=== PATIENT | male | born 1955 | race Caucasian/White ===

== ENCOUNTER 2024-05-09 15:23 | Outpatient (CLI) | payer MEDICARE, SELFPAY ==
--- NOTE | 2024-05-09 08:30 | DI.RAD_ITS ---
Exam(s) XR KNEE RT 3V AP,LAT,SHADI EXAM: XR KNEE RT 3V AP,LAT,SHADI CLINICAL HISTORY: eval R TKA pain. TECHNIQUE: 2D digital imaging was performed. COMPARISON: CR XR KNEE 1 OR 2V RT from 03/31/2016 CR ORTHO KNEE RIGHT 4+VIEWS from 04/22/2016 CR ORTHO KNEE RIGHT 3 VIEWS from 06/24/2016 DX Knee RT from 03/31/2022 FINDINGS: Four views Again noted is a revised right knee prosthesis with longer stems in both the femoral and tibial compo nents when compared to the original prosthesis of 03/31/2016 There is no evidence of fracture but there is a linear lucency parallel to the surface subjacent to t he medial tibial plateau component. May be associated with loosening. Similar findings not seen rel ated to the femoral component. No evidence of osteomyelitis. IMPRESSION: Possible loosening of the tibial component. DATA REPOSITORY: RADIATION DOSE DELIVERED:
== END 2024-05-09 15:24 | disposition home or self-care (01) ==
LOC: DIORS 15:24
PROVIDERS: PCP Family Medicine; Referring Provider Family Medicine; Visit Provider Student in an Organized Health Care Education/Training Program
DX: T84.84XA Pain due to internal orthopedic prosthetic devices, implants and grafts, initial encounter (principal); Z96.651 Presence of right artificial knee joint; M24.661 Ankylosis, right knee
CPT/HCPCS: 73562; 99204

== ENCOUNTER 2024-05-17 01:55 | Outpatient (CLI) | payer MEDICARE, SELFPAY ==
--- NOTE | 2024-05-17 06:45 | DI.NM_ITS ---
Exam(s) NM BONE SCAN 3 PHASE EXAM: NM BONE SCAN 3 PHASE CLINICAL HISTORY: PAIN, ? LOOSENING TOTAL KNEE REPLACEMENT,Z96.651,T84.84XA,. TECHNIQUE: Injected Dose: 25 mCi Tc-99m MDP COMPARISON: DX Knee RT from 03/31/2022 CR XR KNEE RT 3V AP,LAT,SHADI from 05/09/[address] LOWER EXTREMITY RT WO from 05/17/2024 FINDINGS: Perfusion: No asymmetric uptake is seen in the right proximal tibia. Blood Pool: No asymmetric uptake is seen in the right proximal tibia. Delayed: There is increased uptake seen on the delayed images at the bone prosthesis interface in the proximal tibia. This can be seen with loosening. IMPRESSION: 1. Increased uptake seen at the bone prosthetic interface of the proximal tibia which can be seen wit h loosening. DATA REPOSITORY:
--- NOTE | 2024-05-17 08:28 | DI.CT_ITS ---
Exam(s) CT LOWER EXTREMITY RT WO EXAM: CT LOWER EXTREMITY RT WO CLINICAL HISTORY: PAIN, ? LOOSENING RT TOTAL KNEE REPLACEMENT,Z96.651,T84.84XA. TECHNIQUE: Imaging Protocol: Axial computed tomography images with coronal and sagittal reformatted images were created and reviewed. COMPARISON: CR ORTHO KNEE RIGHT 4+VIEWS from 04/22/2016 CR ORTHO KNEE RIGHT 3 VIEWS from 06/24/2016 DX Knee RT from 03/31/2022 CR XR KNEE RT 3V AP,LAT,SHADI from 05/09/2024 FINDINGS: There is artifact related to the patient's right total knee arthroplasty. This does limit the examin ation. Bones: The osseous structures and articular surfaces are intact. Bony alignment is satisfactory. T here is lucency seen at the bone prosthetic interface in the medial proximal tibia. This lucency has increased when compared to the prior examinations. The bone prosthetic interface is well maintained i n the distal femur. The patella is unremarkable. Soft Tissues: There is no joint effusion. Atherosclerotic calcification is present. IMPRESSION: With compared to prior x-ray examinations there has been a worsening of the lucency at the bone prost hetic interface in the medial proximal tibia raising the question of loosening. RADIATION DOSE DELIVERED: 207.64mGy.cm Total DLP 207.64mGy.cm Total DLP DATA REPOSITORY: All CT scans at this facility are submitted to the National Radiology Data Registry (NRDR) Dose Index Registry (DIR) with the [employer] ([employer]). RADIATION OPTIMIZATION: All CT scans at this facility use at least one of these dose optimization te chniques: automated exposure control; mA and/or kV adjustment per patient size (includes targeted exa ms where dose is matched to clinical indication); or iterative reconstruction.
[2024-05-17 08:30] LABS: ESR 5 mm/hr (0-20)
== END 2024-05-17 02:15 ==
LOC: DI 01:55
PROVIDERS: PCP Family Medicine; Visit Provider Student in an Organized Health Care Education/Training Program
DX: T84.84XA Pain due to internal orthopedic prosthetic devices, implants and grafts, initial encounter (principal); Z96.651 Presence of right artificial knee joint
CPT/HCPCS: 85652; 73700; 78315; 86140

== ENCOUNTER → 2024-06-09 08:47 | Outpatient (BNVA) | payer MEDICARE, SELFPAY | PROVIDERS: PCP Family Medicine; Referring Provider Family Medicine; Visit Provider Student in an Organized Health Care Education/Training Program | DX: M25.661 Stiffness of right knee, not elsewhere classified (principal); T84.84XA Pain due to internal orthopedic prosthetic devices, implants and grafts, initial encounter; Z96.651 Presence of right artificial knee joint | CPT/HCPCS: 20610; 99214 ==

== ENCOUNTER 2024-06-09 11:06 | Outpatient (REF) | payer MEDICARE, SELFPAY ==
[2024-06-09 10:47] LABS: Clarity Cloudy
[2024-06-09 10:48] LABS: Nucleated Cells 966 uL (0)
[2024-06-09 10:57] LABS: Mononuclear Cells 71 %; Polynuclear Cells 29 %
--- OUTSIDE RECORDS SUMMARY | 2024-06-09 11:08 | XMS_ITS | Encounter Summary ---
Author Organization [facility] Address [address] [place] [address] Care Team Providers Care Dryerman/Woman Name Role Phone Gilmer Lin MD Primary Care Provider [phone] Reason for Referral * Radiology Services (Routine) - Closed Specialty Diagnoses / Procedures Referred By Anil gardner Referred To Contact Diagnoses H/O right knee surgery Procedures XR KNEE RIGHT 1-2 VIEWS Fred Sethi PA-C Phone: tel: fax: Referral ID Status Reason Start Date Expiration Date Visits Re quested Visits Authorized [id number] Closed 06/22/2020 1 1 Reason for Visit * Radiology Services (Routine) - Closed Specialty Diagnoses / Procedures Referred By Anil gardner Referred To Contact Diagnoses H/O right knee surgery Procedures XR KNEE RIGHT 1-2 VIEWS Fred Sethi PA-C Phone: tel: fax: Referral ID Status Reason Start Date Expiration Date Visits Re quested Visits Authorized [id number] Closed 06/22/2020 1 1 Encounter Details Date Type Department Care Team (Latest Contact Info) Description 06/27/2020 11:04 EST - 06/27/2020 23:59 EST Hospital Encounter [address] [place] [address] H/O right knee surgery Discharge Disposition: Home or Self Care Social History Tobacco Use Types Packs/Day Years Used Date Smoking Tobacco: Never Alcohol Use Standard Drinks/Week Comments No 0 (1 standard drink = 0.6 oz pur e alcohol) Interpersonal Safety Answer Date Record ed Physically Hurt Never 05/20/2020 Verbally Threaten Not on file 05/20/2020 Sex and Gender Information Value Date Recorded Sex Assigned at Not on file Legal Sex Male 18:28 EST Gender Identity Male 06/27/2020 12:34 EST Sexual Orientation Not on file COVID-19 Exposure Response Date Recorded In the last month, have you been in contact with someone who was confirmed or suspected to have Coronavirus / COVID-19? No / Unsure 06/27/2020 12:35 EST documented as of this encounter Functional Status * Are you deaf or do you have serious difficulty hearing? Answer Date of Assessment Author No 04/26/2016 0:00 Sa lea Tyson RN * Are you blind or do you have serious difficulty seeing, even when wearing glasses? Answer Date of Assessment Author Yes 04/26/2016 0:00 Sa lea Tyson RN * Do you have serious difficulty walking or climbing stairs? (5 years old or older) Answer Date of Assessment Author Yes 04/26/2016 0:00 Sa lea Tyson RN * Do you have difficulty dressing or bathing? (5 years old or older) Answer Date of Assessment Author Yes 04/26/2016 0:00 Sa lea Tyson RN * Because of a physical, mental, or emotional condition, do you have difficulty doing errands alone such as visiting a doctor's office or shopping? (15 years old or older) Answer Date of Assessment Author No 04/26/2016 0:00 Sa lea Tyson RN documented as of this encounter Mental Status * Because of a physical, mental, or emotional condition, do you have serious difficulty concentrating, remembering, or making decisions? (5 years old or older) Answer Entry Date Author No 04/26/2016 0:00 Sa lea Tyson RN documented in this encounter Medications at Time of Discharge acetaminophen (TYLENOL) 325 mg tabletIndications :headache disorder Take 325 mg by mouth every 4 hours as needed for Pain. lisinopriL (PRINIVIL) 10 mg tablet Take 10 mg by mouth daily. High blood pressure documented as of this encounter Discharge Disposition Disposition Code Departure Means Destination Home or Self Care documented in this encounter Plan of Treatment Not on file documented as of this encounter Procedures Procedure Name Priority Date/Time Associated Diagnosis Comments XR KNEE RIGHT 1-2 VIEWS Routine 06/27/2020 11:27 EST H/O right knee surgery documented in this encounter Results * XR KNEE RIGHT 1-2 VIEWS (06/27/2020 11:27 EST) Anatomical Region Laterality Modality Lower Extremities Right Computed Radio graphy 06/27/2020 14:3 1 EST Impressions 06/27/2020 14:31 EST FINDINGS / IMPRESSION: * ??Right knee 3 views: Constrained right knee arthroplasty without evidence of periprosthetic fracture. Mild lucency surrounding the medial tibial bone prosthetic interface. Mild osteopenia. * ??Left knee one view: Mild medial and lateral compartment degenerative changes. Narrative 06/27/2020 14:31 EST EXAM/TECHNIQUE: XR KNEE RIGHT 1-2 VIEWS, XR KNEE LEFT 1-2 VIEWS ??06/27/2020 11:30 AM HISTORY: ??loosening COMPARISON: None. Procedure Note Bernabe Donis MD - 06/27/2020 EXAM/TECHNIQUE: XR KNEE RIGHT 1-2 VIEWS, XR KNEE LEFT 1-2 VIEWS 111:30 AM HISTORY: loosening COMPARISON: None. IMPRESSION FINDINGS / IMPRESSION: * Right knee 3 views: Constrained right knee arthroplasty withoutevidence of periprosthetic fracture. Mild lucency surrounding the medialtibial bone prosthetic interface. Mild osteopenia. * Left knee one view: Mild medial and lateral compartment degenerativechanges. Fred Sethi PA-C IMG DIAGNOSTIC IMAGING ORD ERABLES Final Result documented in this encounter Visit Diagnoses Diagnosis H/O right knee surgery Personal history of surgery to other organs documented in this encounter Care Teams Dryerman/Woman Relationship Specialty Start Date End Date Gilmer Lin MD [address] [place] [address] ,[address] [place] [address] PCP - General 04/25/16 documented as of this encounter
--- OUTSIDE RECORDS SUMMARY | 2024-06-09 11:08 | XMS_ITS | Encounter Summary ---
Author Organization [facility] Address [address] [place] [address] Care Team Providers Care Steel Plate Printer Name Role Phone Gilmer Lin MD Primary Care Provider [phone] Reason for Referral * Radiology Services (Routine) - Closed Specialty Diagnoses / Procedures Referred By Anil gardner Referred To Contact Diagnoses H/O right knee surgery Procedures XR KNEE LEFT 1-2 VIEWS Fred Sethi PA-C Phone: tel: fax: Referral ID Status Reason Start Date Expiration Date Visits Re quested Visits Authorized [id number] Closed 06/22/2020 1 1 Reason for Visit * Radiology Services (Routine) - Closed Specialty Diagnoses / Procedures Referred By Anil gardner Referred To Contact Diagnoses H/O right knee surgery Procedures XR KNEE LEFT 1-2 VIEWS Fred Sethi PA-C Phone: tel: fax: Referral ID Status Reason Start Date Expiration Date Visits Re quested Visits Authorized [id number] Closed 06/22/2020 1 1 Encounter Details Date Type Department Care Team (Latest Contact Info) Description 06/27/2020 11:04 EST - 06/27/2020 23:59 EST Hospital Encounter [address] [place] [address] H/O right knee surgery Discharge [...] Priority Date/Time Associated Diagnosis Comments XR KNEE LEFT 1-2 VIEWS Routine 06/27/2020 11:27 EST H/O right knee surgery documented in this encounter Results * XR KNEE LEFT 1-2 VIEWS (06/27/2020 11:27 EST) Anatomical Region Laterality Modality Lower Extremities Left Computed Radio graphy 06/27/2020 14:3 1 EST [...] organs documented in this encounter Care Teams Steel Plate Printer Relationship Specialty Start Date End Date Gilmer Lin MD [address] [place] [address] ,[address] [place] [address] PCP - General 04/25/16 documented as of this encounter
--- OUTSIDE RECORDS SUMMARY | 2024-06-09 11:08 | XMS_ITS | Referral Summary ---
Author Organization [facility] Address [address] [place] [address] Care Team Providers Care Hand Shoe Cutter Name Role Phone Gilmer Lin MD Primary Care Provider [phone] Allergies No known active allergies Medications lisinopriL (PRINIVIL) 10 mg tablet Take 10 mg by mouth daily. High blood pressure Active acetaminophen (TYLENOL) 325 mg tabletIndicatio ns:headache disorder Take 325 mg by mouth every 4 hours as needed for Pain. 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 Chronic kidney disease, stage III (moderate) ( C-CMS) 09/03/2011 Essential hypertension 09/03/2011 Overview (03/01/2015): ICD10 Update Auto Replacement Social History Tobacco Use Types Packs/Day Years [...] 12:34 EST Sexual Orientation Not on file Last Filed Vital Signs Vital Sign Reading Time Taken Comments Blood Pressure 123/82 04/28/2016 0514 EST Pulse 83 04/26/2016 0531 EST Temperature 36.8 ??C (98.2 ??F) 04/28/2016 0514 EST Respiratory Rate 16 04/28/2016 0514 EST Oxygen Saturation 98% 04/28/2016 0514 EST Inhaled Oxygen Concentration - - Weight 75.8 kg (167 lb) 04/25/2016 1403 EST Height 167.6 cm (5' 6) 04/25/2016 1403 EST Body Mass Index 26.95 04/25/2016 1403 EST Functional Status * Are you deaf or [...] No 04/26/2016 0:00 Sa lea Tyson RN Mental Status * Because of a physical, mental, or emotional condition, do you have serious difficulty concentrating, remembering, or making decisions? (5 years old or older) Answer Entry Date Author No 04/26/2016 0:00 Sa lea Tyson RN Plan of Treatment Not on file Insurance [facility] [place] [address] Advance Directives For more information, please contact: [phone] * Full Code (Latest Code Status on File) Date Activated Date Inactivated Comments 04/25/2016 23:08 04/28/2016 14:35 Question Answer Comments Reason for decision includes: Full code consistent with overall plan of care Who participated in the discussion? Not Discusse d Care Teams Hand Shoe Cutter Relationship Specialty Start Date End Date Gilmer Lin MD [address] [place] [address],[address] [place] [phone] PCP - General 04/25/16
--- OUTSIDE RECORDS SUMMARY | 2024-06-09 11:08 | XMS_ITS | Encounter Summary ---
Author Organization [facility] Address [address] [place] [address] Care Team Providers Care Design Engineer Marine Equipment Name Role Phone Gilmer Lin MD Primary Care Provider [phone] Encounter Details Date Type Department Care Team (Latest Contact Info) Description 06/27/2020 Travel Social History Tobacco Use Types Packs/Day Years [...] lea Tyson RN documented in this encounter Plan of Treatment Not on file documented as of this encounter Visit Diagnoses Not on filedocumented in this encounter Care Teams Design Engineer Marine Equipment Relationship Specialty Start Date End Date Gilmer Lin MD [address] [place] [address],[address] [place] [address] PCP - General 04/25/16 documented as of this encounter
--- OUTSIDE RECORDS SUMMARY | 2024-06-09 11:08 | XMS_ITS | Encounter Summary ---
Author Organization [facility] Address [address] [place] [address] Care Team Providers Care Medical Insurance Biller Name Role Phone Gilmer Lin MD Primary Care Provider [phone] Reason for Visit * Reason Comments Knee Pain Right knee pain Pain * Consult, Test and Treat (Routine) - Closed Specialty Diagnoses / Procedures Referred By Contsugey gardner Referred To Contact Orthopedic Surgery Diagnoses Presence of unspecified artificial knee joint Gilmer Lin MD [address] [place] [address],[address] [place] [address] Phone: tel: fax: [facility] [place] [address] Phone: tel: fax: Referral ID Status Reason Start Date Expiration Date Visits Re quested Visits Authorized [id number] Closed 1 1 Encounter Details Date Type Department Care Team (Late st Contact Info) Description 06/27/2020 11:00 EST Office Visit [facility] [place] [address] Fred Sethi PA-C [address] [place] [address] History of revision of total replacement of right knee joint (Primary Dx) Social History Tobacco Use Types Packs/Day Years [...] lea Tyson RN documented in this encounter Progress Notes * Fred Sethi PA-C - 06/27/2020 1100 EST NEW RIGHT KNEE PAIN, HISTORY REVISION R TKA SUBJECTIVE: Fredi Vargas presents today for right knee pain after previous revision R TKA referred by Dr. Lin. This 65-year-old gentleman with history of hypertension and chronic kidney disease underwent right total knee arthroplasty on 03/31/2016 at [facility] in [facility] with Dr. Gann. He reports pain and swelling after the primary surgery. He then underwent revision TKA with Dr. Thorne at [facility]. At his follow-up with Dr. Thorne in October 2018 he was reported to still have pain stiffness and swelling and it appears no further treatment was recommended. It also appears he was examined by Dr. Montero at [facility] in 2019 where inflammatory markers were ordered in what appears to be an attempt to rule out infection. Unfortunately all prior notes are not available at todays visit. He reports 5/10 severity constant right knee pain today. He feels like he has had significant pain since both his surgeries and neither of them have ever significantly reduced his pain. He takes Tylenol regularly for his headaches. There is a tightness reported around the anterior knee. Social history was reviewed. The patient does not drink alcohol. He does not use tobacco products. Current Outpatient Medications Medication ??? acetaminophen (TYLENOL) 325 mg tablet ??? lisinopriL (PRINIVIL) 10 mg tablet No current facility-administered medications for this visit. No Known Allergies REVIEW OF SYSTEMS: Documented on the patient intake form. These were reviewed by me. Pertinent positives mentioned above. PHYSICAL EXAM: GENERAL: Adult male Patient is of appropriate dress and affect in no acute distress. AOx 3. Pleasant and cooperative during examination. Pt is interactive and asks appropriate questions during interview demonstrating understanding. Skin: Does have multiple areas of minor skin irritation about the medial thigh and abdomen. Eyes: Sclerae clear. Cardiovascular: Gross examination of the peripheral vascular system by observation and palpation reveals no significant ulcers, peripheral edema or varicosities. Capillary refill normal. Palpable 2+ Dorsalis Pedis and posterior tibial pulses Respiratory: Regular, unlabored, without audible wheezing. Neuro: There is no tremor appreciated. Speech is fluent and understandable. No obvious proprioceptive/balance defects appreciated. Heme/Lymph: No gross LAD appreciated during examination. No purpura/petechiae are noted. Musculoskeletal: Pt is full weightbearing. Arises from a seated position without pain. Ambulates with a moderate limp. Knee: Evaluation of RIGHT knee demonstrates no gross deformity, lacerations, or ecchymosis. The knee is not warm or erythematous. The skin is in good condition with no observed lacerations or breaks. Thereis a well-healed surgical incision There is no gross genu varum or valgum deformity noted No significant joint line tenderness. Grossly NVID. RIGHT ROM: While supine at 90 of hip flexion Flexion: 5-80 Has no varus or valgus laxity at 0 or 30 degrees flexion Strength Testin/5 strength appreciated bilat tibialis anterior/gastroc soleus testing There is 1+ effusion Has no pain with patellar grind. IMAGING STUDY REVIEW: Imaging of the knees was obtained in clinic today and independently reviewed by me. There is a longstem cemented revision type total arthroplasty in good position with no sign of periprosthetic fracture or loosening. Of note there appears to be development of at least a moderate patella baja on lateral views when compared to post op films in 2016. This finding appears to be due to soft tissue changes as apposed to realignment of the joint line after the revision surgery. ASSESSMENT AND MEDICAL DECISION MAKING: DIAGNOSIS: 1) History right total knee arthoplasty revision 2) Chronic right knee pain SUMMARY: It was my pleasure to see Fredi Vargas in orthopedic clinic today regarding his right knee pain. Fredi has a complex orthopedic history regarding his right knee. Unfortunately he continues to have pain and swelling in his right knee and presents today for second opinion on steps moving forward. This lack of ROM, swelling and pain affects him on a daily basis and is quite limiting per his report. It appears his issues mainly stem from a significant amount of post operative arthrofibrosis which was only partially alleviated with his revision surgery. We discussed that first I would like to order repeat inflammatory markers. Not only do I not have the results from his last lab work-up in 2019 but considering his continued pain and effusion I thinkrepeating labs is a very reasonable next step. We also discussed that if there is any significant elevations arthrocentesis may be advised for further investigation We did discuss the option of referral to one of our arthroplasty surgeons however at this time Fredi is not ready to make a decision on any further discussion of surgery. I have not recommended he aggressively pursue anymore elective surgery on his right knee. I think there is a relatively unknown chance that further revision surgery would give him significant relief of symptoms. Note: Labs are un concerning forand this was discussed with Mr. Herrera over the phone 06/28/2020 LABS 06/27/2020 SED RATE 1 CRP <7 WBC 5.68 PLAN: Follow up as needed, if symptoms worsen Dr. Sanchez or Dr. Romero only COMMENT: I have discussed diagnosis, medication(s)/treatment(s), alternatives and potential side effects with the patient who indicated their understanding. Numeric/pictorial pain scale used for pain evaluation during todays exam. No learning or language barriers noted during clinical encounter. Patient was counseled on evaluation, voiced agreement with plan, and has no further questions or concerns relating to today's visit. Dr. Sanchez was the orthopedic attending physician available in clinic today. Consultation was not required. Cc: Gilmer Lin Cc: Delia documented in this encounter Plan of Treatment Not on file documented as of this encounter Results * C REACTIVE PROTEIN (06/27/2020 12:45 EST) [facility] C-Reactive Protein <7.0 <10.0 mg/L 06/27/2020 13:46 EST [facility] Blood VENOUS BLOOD / Unknown Venipuncture / Unknown 06/27/2020 12:45 EST 06/27/2020 13:13 EST us Fred Sethi PA-C CHEMISTRY & BLOOD GAS ORDE RABLES Final Result [facility] [address] [place] [address] * SED. RATE:WESTERGREN (06/27/2020 12:45 EST) Pathologist [facility] Sed Rate 1 0 - 20 mm/hr 06/27/2020 13:51 EST [facility] Blood VENOUS BLOOD / Unknown Venipuncture / Unknown 06/27/2020 12:45 EST 06/27/2020 13:08 EST us Fred Sethi PA-C HEMATOLOGY & PF4 ORDERABLE S Final Result [facility] [address] [place] [address] * (ABNORMAL) COMPLETE BLOOD COUNT AND DIFFERENTIAL (06/27/2020 12:45 [facility]) WBC 5.68 4.00 - 10.40 K/cmm 06/28/2020 17:03 [facility] RBC 6.17(H) 4.36 - 5.78 M/cmm 06/28/2020 17:03 [facility] Hemoglobin 19.2(H) 13.8 - 17.3 gm/dL 06/28/2020 17:03 [facility] HCT 55.1(H) 39.5 - 50.2 % 06/28/2020 17:03 [facility] MCV 89 81 - 95 fl 06/28/2020 17:03 [facility] MCH 31.1 27.6 - 33.0 pg 06/28/2020 17:03 [facility] MCHC 34.8 32.8 - 36.4 gm/dL 06/28/2020 17:03 [facility] RDW-CV 12.7 <14.2 % 06/28/2020 17:03 [facility] RDW-SD 41.4 <46.0 fl 06/28/2020 17:03 [facility] PLT 280 141 - 377 K/cmm 06/28/2020 17:03 [facility] MPV 9.0(L) 9.5 - 12.7 fl 06/28/2020 17:03 [facility] % Neutrophils 63.2 % 06/28/2020 17:03 [facility] % Lymphocytes 22.2 % 06/28/2020 17:03 [facility] % Monocytes 11.8 % 06/28/2020 17:03 [facility] % Eosinophils 1.8 % 06/28/2020 17:03 [facility] % Basophils 0.5 % 06/28/2020 17:03 [facility] % Immature Grans 0.5 % 06/28/19 17:03 [facility] Absolute Neutrophils 3.59 2.20 - 8.85 K/cmm 06/28/2020 17:03 [facility] Absolute Lymphocytes 1.26 1.09 - 3.30 K/cmm 06/28/2020 17:03 [facility] Absolute Monocytes 0.67 0.10 - 0.80 K/cmm 06/28/2020 17:03 [facility] Absolute Eosinophils 0.10 0.03 - 0.61 K/cmm 06/28/2020 17:03 [facility] ABS Basophils 0.03 0.01 - 0.11 K/cmm 06/28/2020 17:03 [facility] Absolute Immature Grans 0.03 0.00 - 0.06 K/cmm 06/28/2020 17:03 [facility] Type of Differential: Auto 06/28/2020 17:03 [facility] Blood VENOUS BLOOD / Unknown Venipuncture / Unknown 06/27/2020 12:45 EST 06/27/2020 13:08 EST Fred Sethi PA-C PACKAGES & DNA PROBE ORDER VIANNEY Final Result [facility] [address] [place] [address] documented in this encounter Visit Diagnoses Diagnosis History of revision of total replacement of right knee joint- Primary documented in this encounter Discontinued Medications Medication Sig Discontinue Reason Start Date End Da te traMADol (ULTRAM) 50 mg tablet Take 1 Tab by mouth every 6 hours as needed for Pain. Daily Max: 200 mg Therapy completed 04/28/2016 06/27/2020 oxyCODONE (ROXICODONE) 5 mg immediate release tablet Take 1-4 Tabs by mouth every 3 hours as needed for Pain. Daily Max: 160 mg Therapy completed 04/28/2016 06/27/2020 methocarbamol (ROBAXIN) 500 mg tablet Take 1-2 Tabs by mouth every 6 hours as needed (muscle spasms). Therapy completed 04/28/2016 06/27/2020 aspirin 325 mg tablet Take 325 mg by mouth daily. Therapy completed 06/27/2020 hydrochlorothiazide (HYDRODIURIL) 25 mg tablet Take 25 mg by mouth daily. Therapy completed 06/27/2020 HYDROcodone-acetaminophe n (NORCO) 7.5-325 mg per tablet Take 1 Tab by mouth every 6 hours. Therapy completed 06/27/2020 lisinopril (PRINIVIL, ZESTRIL) 20 mg tablet Take 5 mg by mouth daily. Therapy completed 06/27/2020 sulfamethoxazole-trimeth oprim (BACTRIM/C0-TRIMOXAZOLE DS) 800-160 mg per tablet Take 1 Tab by mouth every 12 hours. Therapy completed 06/27/2020 documented as of this encounter Historical Medications * This list may reflect changes made after this encounter. acetaminophen (TYLENOL) 325 mg tabletIndications :headache disorder Take 325 mg by mouth every 4 hours as needed for Pain. lisinopriL (PRINIVIL) 10 mg tablet Take 10 mg by mouth daily. High blood pressure added in this encounter Care Teams Medical Insurance Biller Relationship Specialty Start Date End Date Gilmer Lin MD [address] [place] [address] ,[address] [place] [id number] PCP - General 04/25/16 documented as of this encounter
--- OUTSIDE RECORDS SUMMARY | 2024-06-09 11:08 | XMS_ITS | Encounter Summary ---
Author Organization [facility] Address [address] [place] [address] Care Team Providers Care Biscuit Factory Worker Name Role Phone Gilmer Lin MD Primary Care Provider Encounter Details Date Type Department Care Team (Late st Contact Info) Description 06/27/2020 12:45 EST Phlebotomy Only [facility] 2 Phlebotomy [address] [place], [place] [address] Client Experience Specialist, Acc Phlebotomy History of revision of total replacement of right knee joint Social History Tobacco Use Types Packs/Day Years [...] Date of Assessment Author No 04/26/2016 0:00 EST Sa lea Ledesma RN * Are you blind or do you have serious difficulty seeing, even when wearing glasses? Answer Date of Assessment Author Yes 04/26/2016 0:00 EST Sa lea Ledesma RN * Do you have serious difficulty [...] Procedure Name Priority Date/Time Associated Diagnosis Comments SED RATE Routine 06/27/2020 12:45 EST History of revision of total replacement of right knee joint COMPLETE BLOOD COUNT AND DIFFERENTIAL Routine 06/27/2020 12:45 EST History of revision of total replacement of right knee joint C REACTIVE PROTEIN Routine 06/27/2020 12 :45 EST History of revision of total replacement of right knee joint documented in this encounter Results * C REACTIVE PROTEIN (06/27/2020 12:45 EST) C-Reactive Protein <7.0 <10.0 mg/L 06/27/2020 13:46 EST [facility] Blood VENOUS BLOOD / Unknown Venipuncture / Unknown 06/27/2020 12:45 EST 06/27/2020 13:13 EST us Fred Sethi PA-C CHEMISTRY & BLOOD GAS ORDE MADDI Final Result [facility] [address] [place] [address] * SED. RATE:AFSHINERGREN (06/27/2020 12:45 EST) Sed Rate 1 0 - 20 mm/hr 06/27/2020 13:51 [facility] Blood VENOUS BLOOD / Unknown Venipuncture / Unknown 06/27/2020 12:45 EST 06/27/2020 13:08 EST Fred Sethi PA-C HEMATOLOGY & PF4 ORDERABLE S Final Result [facility] [address] [place] [address] * (ABNORMAL) COMPLETE BLOOD COUNT AND DIFFERENTIAL (06/27/2020 12:45 EST) Pathologist [facility] WBC 5.68 4.00 - 10.40 K/cmm 06/28/2020 17:03 [facility] RBC 6.17(H) 4.36 - 5.78 M/cmm 06/28/2020 17:03 [facility] Hemoglobin 19.2(H) 13.8 - 17.3 gm/dL 06/28/2020 17:03 [facility] HCT 55.1(H) 39.5 - 50.2 % 06/28/2020 17:03 [facility] MCV 89 81 - 95 fl 06/28/2020 17:03 [facility] MCH 31.1 27.6 - 33.0 pg 06/28/2020 17:03 [facility] MCHC 34.8 32.8 - 36.4 gm/dL 06/28/2020 17:03 [facility] RDW-CV 12.7 <14.2 % 06/28/2020 17:03 [facility] RDW-SD 41.4 <46.0 fl 06/28/2020 17:03 [facility] PLT 280 141 - 377 K/cmm 06/28/2020 17:03 [facility] MPV 9.0(L) 9.5 - 12.7 fl 06/28/2020 17:03 [facility] % Neutrophils 63.2 % 06/28/2020 17:03 [facility] % Lymphocytes 22.2 % 06/28/2020 17:03 [facility] % Monocytes 11.8 % 06/28/2020 17:03 [facility] % Eosinophils 1.8 % 06/28/2020 17:03 [facility] % Basophils 0.5 % 06/28/2020 17:03 [facility] % Immature Grans 0.5 % 06/28/19 17:03 [facility] Absolute Neutrophils 3.59 2.20 - 8.85 K/cmm 06/28/2020 17:03 [facility] Absolute Lymphocytes 1.26 1.09 - 3.30 K/cmm 06/28/2020 17:03 [facility] Absolute Monocytes 0.67 0.10 - 0.80 K/cmm 06/28/2020 17:03 [facility] Absolute Eosinophils 0.10 0.03 - 0.61 K/cmm 06/28/2020 17:03 [facility] ABS Basophils 0.03 0.01 - 0.11 K/cmm 06/28/2020 17:03 [facility] Absolute Immature Grans 0.03 0.00 - 0.06 K/cmm 06/28/2020 17:03 [facility] Type of Differential: Auto 06/28/2020 17:03 [facility] Blood VENOUS BLOOD / Unknown Venipuncture / Unknown 06/27/2020 12:45 EST 06/27/2020 13:08 EST us Fred Sethi PA-C PACKAGES & DNA PROBE ORDER VIANNEY Final Result [facility] [address] [place] [address] documented in this encounter Visit Diagnoses Diagnosis History of revision of total replacement of right knee joint documented in this encounter Care Teams Biscuit Factory Worker Relationship Specialty Start Date End Date Gilmer Lin MD [address] [place] [address] ,[address] [place] [address] PCP - General 04/25/16 documented as of this encounter
--- OUTSIDE RECORDS SUMMARY | 2024-06-09 11:08 | XMS_ITS | Clinical Summary ---
Author Organization [facility] Address [address] [place] [address] Care Team Providers Care After School Driver Name Role Phone Gilmer Lin MD Primary Care Provider [phone] Allergies No known active allergies Medications lisinopriL [...] 09/03/2011 Overview (03/01/2015): ICD10 Update Auto Replacement Surgical History Surgery Date Site/Laterality Comments JOINT REPLACEMENT APPENDECTOMY Social History Tobacco Use Types Packs/Day Years [...] 12:34 EST Sexual Orientation Not on file Obstetrics History Last Filed Vital Signs Vital Sign Reading [...] Body Mass Index 26.95 04/25/2016 1403 EST Plan of Treatment Health Maintenance Due Date Last Done Comments Hepatitis C Screen 1955 Fall Risk Screening 2022 COVID-19 Vaccine (5 - 2023-2 5 season) 2024 03/26/2022, 03/25/2021, 09/24/2020, Additional history exists RSV Immunization ( o r 60+ Years) (1 - 1-dose 75+ series) 02/22/2032 Insurance [employer] MEDICARE Advance Directives For more information, please contact: [phone] * Full Code (Latest Code Status on File) Date Activated Date Inactivated Comments 04/25/2016 23:08 04/28/2016 14:35 Question Answer Comments Reason for decision includes: Full code consistent with overall plan of care Who participated in the discussion? Not Discusse d Care Teams After School Driver Relationship Specialty Start Date End Date Gilmer Lin MD [address] [place] [address],[address] [place] [phone] PCP - General 04/25/16
--- OUTSIDE RECORDS SUMMARY | 2024-06-09 11:08 | XMS_ITS | Encounter Summary ---
Author Organization [facility] Address [address] [place] [address] Care Team Providers Care Clinical Services Specialist Name Role Phone Gilmer Lin MD Primary Care Provider [phone] Encounter Details Date Type Department Care Team (Late st Contact Info) Description 09/02/[address] [facility] Pathology & Laboratory Medicine - [facility] [address] [place] [address] Sanya Galo [address] [place] [phone] Encounter for other general examination Social History Tobacco Use Types Packs/Day Years [...] 12:34 EST Sexual Orientation Not on file documented as of this encounter Functional Status [...] of Assessment Author Yes 04/26/2016 0:00 EST Baltazar, Sa rah, RN * Do you have difficulty dressing [...] Procedure Name Priority Date/Time Associated Diagnosis Comments SURGICAL PATHOLOGY Today 09/02/2021 10 :42 EDT documented in this encounter Results * SURGICAL PATHOLOGY (09/02/2021 10:42 EDT) Note to Patient The following pathology results have been interpreted by your pathologist and may be available to you before your health provider has had the opportunity to review them. Please allow time for your provider to receive these results and explore management options, if applicable. 09/05/2021 9:02 [facility] Final Diagnosis A. COLON, 40 CMS, POLYP, BIOPSY: - Colonic mucosa with focal hyperplastic change. - Deeper sections x3 examined. 09/05/2021 9:02 [facility] Attestation By the signature below, the attending physician certifies that they have 1) personally conducted a gross and/or microscopic examination of the described specimen(s), and/or personally interpreted the results of laboratory testing of the described specimen(s), and 2) personally rendered or confirmed the above diagnosis. 09/05/2021 9:02 [facility] at 0902 Clinical History History of colon polyps 09/05/2021 9:02 [facility] Gross Description A. Received in formalin labelled with proper patient identification (initials P, R) and polyp at 40 cm is a single fragment of hebret soft tissue (0.2 x 0.2 x 0.2 cm). The specimen is entirely submitted in A1. AUTUMN THOMAS(ASCP) 09/03/2021 13:56 09/05/2021 9:02 EDT [facility] Performing Lab [facility] 09/05/2021 9:02 EDT [facility] Scanned Images 09/05/2021 9:02 EDT [facility] Tissue POLYP OF COLON / Unknown 09/02/2021 10:42 EDT 09/03/2021 10:33 EDT us Sanya Galo PATHOLOGY ORDERABLES Final Resu lt [facility] [address] [place] [address] documented in this encounter Visit Diagnoses Diagnosis Encounter for other general examination documented in this encounter Care Teams Clinical Services Specialist Relationship Specialty Start Date End Date Gilmer Lin MD [address] [place] [address],[address] [place] [address] PCP - General 04/25/16 documented as of this encounter
--- OUTSIDE RECORDS SUMMARY | 2024-06-09 11:08 | XMS_ITS | Encounter Summary ---
Author Organization [facility] Address [address] [place] [address] Care Team Providers Care Forest Fire Prevention Manager Name Role Phone Gilmer Lin MD Primary Care Provider [phone] Reason for Referral * Radiology Services (Routine) - Closed Specialty Diagnoses / Procedures Referred By Anil gardner Referred To Contact Diagnoses H/O right knee surgery Procedures XR KNEE LEFT 1-2 VIEWS Fred Sethi PA-C Phone: tel: fax: Referral ID Status Reason Start Date Expiration Date Visits Re quested Visits Authorized [id number] Closed 06/22/2020 1 1 * Radiology Services (Routine) - Closed Specialty Diagnoses / Procedures Referred By Anil gardner Referred To Contact Diagnoses H/O right knee surgery Procedures XR KNEE RIGHT 1-2 VIEWS Fred Sethi PA-C Phone: tel: fax: Referral ID Status Reason Start Date Expiration Date Visits Re quested Visits Authorized [id number] Closed 06/22/2020 1 1 Reason for Visit * Reason Onset Date Comments Knee Problem 06/22/2020 Encounter Details Date Type Department Care Team (Late st Contact Info) Description 06/22/2020 Orders Only [facility] - [address] [address] Fred Sethi PA-C [address] [place] [phone] H/O right knee surgery (Primary Dx) Social History Tobacco Use Types [...] documented as of this encounter Results * XR KNEE LEFT [...] IMG DIAGNOSTIC IMAGING ORD ERABLES Final Result * XR KNEE RIGHT 1-2 VIEWS (06/27/2020 [...] encounter Visit Diagnoses Diagnosis H/O right knee surgery- Primary Personal history of surgery to other organs H/O right knee surgery Personal history of surgery to other organs H/O right knee surgery Personal history of surgery to other organs documented in this encounter Care Teams Forest Fire Prevention Manager Relationship Specialty Start Date End Date Gilmer Lin MD [address] [place] [address],[address] [place] [address] PCP - General 04/25/16 documented as of this encounter
--- OUTSIDE RECORDS SUMMARY | 2024-06-09 11:08 | XMS_ITS | Encounter Summary ---
Author Organization [facility] Address [address] [place] [address] Care Team Providers Care Improvement Intern Name Role Phone Gilmer Lin MD Primary Care Provider [phone] Encounter Details Date Type Department Care Team (Late st Contact Info) Description 09/22/2023 Lab Requisition [facility] Pathology & Laboratory Medicine - [facility] [address] [place] [address] Bernabe Doss MD [address] [place] [id number] Encounter for other general examination Social History [...] Date/Time Associated Diagnosis Comments SURGICAL PATHOLOGY Today 09/22/2023 15 :11 EDT documented in this encounter Results * SURGICAL PATHOLOGY (09/22/2023 15:11 EDT) Note to Patient The following pathology results have been interpreted by your pathologist and may be available to you before your health provider has had the opportunity to review them. Please allow time for your provider to receive these results and explore management options, if applicable. 09/24/2023 11:38 [facility] Final Diagnosis A. SKIN OF FACE, LEFT, EXCISION: - Follicular cyst, infundibular type, with dermal fibrosis, granulation tissue, and mixed inflammation. 09/24/2023 11:38 [facility] Attestation By the signature below, the attending physician certifies that they have 1) personally conducted a gross and/or microscopic examination of the described specimen(s), and/or personally interpreted the results of laboratory testing of the described specimen(s), and 2) personally rendered or confirmed the above diagnosis. 09/24/2023 11:38 [facility] at 1138 Microscopic Description There is a cyst that is lined by stratified squamous epithelium that matures through a granular layer. The cyst is filled with laminated orthokeratin. Portions of the cyst wall are disrupted. The surrounding dermis is marked by fibrosis, granulation tissue formation, and inflammation. There are foreign body giant cells. 09/24/2023 11:38 EDT [facility] Clinical History Skin lesion left facial 09/24/2023 11:38 T [facility] Gross Description A. Received in formalin labelled with proper patient identification (initials P, R) and skin lesion left facial is an unoriented, elliptical excision of granular hebert skin (1.2 x 0.5 x 0.5 cm). The margin is inked. The specimen is serially sectioned and entirely submitted in A1 (tips, reverse en face) and A2 (3 central sections). AUTUMN THOMAS(ASCP) 09/23/2023 7:48 09/24/2023 11:38 EDT [facility] Performing Lab [facility] 09/24/2023 11:38 T [facility] Scanned Images 09/24/2023 11:38 T [facility] Tissue SPECIMEN FROM SKIN / Unknown 09/22/2023 15:11 EDT 09/23/2023 7:14 EDT us Bernabe Doss MD PATHOLOGY ORDERABLES Fin al Result [facility] [address] [place] [address] documented in this encounter Visit Diagnoses Diagnosis Encounter for other general examination documented in this encounter Care Teams Improvement Intern Relationship Specialty Start Date End Date Gilmer Lin MD [address] [place] [address] ,[address] [place] [address] PCP - General 04/25/16 documented as of this encounter
--- OUTSIDE RECORDS SUMMARY | 2024-06-09 11:08 | XMS_ITS | Encounter Summary ---
Author Organization [facility] Address [address] [place] [address] Care Team Providers Care Ornithology Teacher Name Role Phone Gilmer Lin MD Primary Care Provider [phone] Encounter Details Date Type Department Care Team (Late st Contact Info) Description 07/03/2021 Lab Requisition [facility] Pathology & Laboratory Medicine - [facility] [address] [place], [place] [id number] Outr Resulting Lab, Provider Social History Tobacco Use Types Packs/Day Years [...] Procedure Name Priority Date/Time Associated Diagnosis Comments ZZCOVID-19 TEST [facility] PCR Today 07/03/2021 14:55 EST COVID-19 TESTING Routine 07/03/2021 14:5 5 EST documented in this encounter Results * COVID-19 TEST [facility] PCR (07/03/2021 14:55 EST) Swab 07/03/2021 14:5 5 EST 07/04/2021 20:06 EST us Provider Outr Resulting Lab MICROBIOLOGY - GENER AL ORDERABLES Final Result [facility] [address] [place] [address] * COVID-19 TESTING (07/03/2021 14:55 EST) COVID-19 rt-PCR Result Negative Negative 07/05/2021 12:21 EST [facility] Comment: This test has not been FDA cleared or approved. This test has been authorized by FDA under an EUA for use by authorized laboratories. This test has been authorized only for detection of nucleic acid from 2019-nCoV, not for any other viruses or pathogens. This test is only authorized for the duration of the declaration that circumstances exist justifying the authorization of emergency use of in vitro diagnostic tests for detection and/or diagnosis of 2019-nCoV under section 564(b)(1) of Act, 21 U.S.C ?? 360bbb-3(b) (1), unless the authorization is terminated or revoked sooner. Negative results do not preclude 2019-nCoV infection and should not be used as the sole basis for treatment or other patient management decisions. Negative results must be combined with clinical observations, patient history, and epidemiological information. Testing was performed using the mike SARS-CoV-2 assay ([employer] on the Mike 6800 System Performing Lab Mike [address] [facility] 07/05/2021 12:21 EST [facility] Swab 07/03/2021 14:5 5 EST 07/04/2021 20:06 EST us Provider Outr Resulting Lab MICROBIOLOGY - GENER AL ORDERABLES Final Result [facility] [address] [place] [address] documented in this encounter Visit Diagnoses Not on filedocumented in this encounter Care Teams Ornithology Teacher Relationship Specialty Start Date End Date Gilmer Lin MD [address] [place] [address] ,[address] [place] [address] PCP - General 04/25/16 documented as of this encounter
--- OUTSIDE RECORDS SUMMARY | 2024-06-09 11:09 | XMS_ITS | Encounter Summary ---
Author Organization [facility] Address [address] [place] [address] Care Team Providers Care Housekeeper/Laundry Assistant Name Role Phone Unavailable Primary Care Provider Unavailabl e Encounter Details Date Type Department Care Team (Late st Contact Info) Description 07/07/2006 10:53 EST Hospital Encounter [facility] [address] [place] [address] Violette Stewart PA-C [address] [place], [place] [id number] Social History Tobacco Use Types Packs/Day Years [...] 12:35 EST documented as of this encounter Plan of Treatment Not on file documented as of this encounter Visit Diagnoses Not on filedocumented in this encounter
--- OUTSIDE RECORDS SUMMARY | 2024-06-09 11:09 | XMS_ITS | Encounter Summary ---
Author Organization [facility] Address [address] [place] [address] Care Team Providers Care Business Coordinator Name Role Phone Gilmer Lin MD Primary Care Provider [phone] Reason for Visit * Reason Comments Knee Pain Patient had right kn ee surgery on the 31 of March. Right knee red and swollen Saw his PCP Today Encounter Details Date Type Department Care Team (Late st Contact Info) Description 04/25/2016 20:45 EST - 04/28/2016 12:29 EST Hospital Encounter [facility] General Surgery Unit [address], [place] [id number] Ray Lehman, PA-C [address] [facility], [address] [place] [id number] Finn Andrade PA Bartlett, Craig Scott, MD [address] [place] [phone] Hemarthrosis following procedure, initial encounter (Primary Dx); Infected prosthetic knee joint, initial encounter (CMS-HCC); Chronic kidney disease, stage III (moderate) ([facility]) Discharge Disposition: Home or Self Care Social History Tobacco Use Types Packs/Day Years Used Date Smoking Tobacco: Never Alcohol Use Standard Drinks/Week Comments No 0 (1 standard drink = 0.6 oz pur e alcohol) Sex and Gender Information Value Date Recorded Sex Assigned at Not on file Legal Sex Male 18:28 EST Gender Identity Male 06/27/2020 12:34 EST Sexual Orientation Not on file documented as of this encounter Last Filed Vital Signs Vital Sign Reading [...] Body Mass Index 26.95 04/25/2016 1403 EST documented in this encounter Functional Status * Are you [...] lea Tyson RN documented in this encounter Discharge Diagnoses Diagnosis T84.83XA Hemorrhage due to internal orthopedic prosthetic devices, implants and grafts, initial encounter-T84.83XA[ICD-10-CM] T84.53XA Infection and inflammatory reaction due to internal right knee prosthesis, initial encounter-T84.53XA[ICD-10-CM] N18.3 Chronic kidney disease, stage 3 (moderate)-N18.3[ICD-10-CM] I12.9 Hypertensive chronic kidney disease with stage 1 through stage 4 chronic kidney disease, or unspecified chronic kidney disease-I12.9[ICD-10-CM] Z96.651 Presence of right artificial knee joint-Z96.651[ICD-10-CM] Z79.82 skilled nursing (current) use of aspirin-Z79.82[ICD-10-CM] documented in this encounter Discharge Summaries * Nataliia Caruso MD - 04/28/2016 1229 EST Discharge Summary Primary Care Provider: Gilmer Lin Attending Physician: Michael Skinner III, MD Date of Injury: 04/25/16 Admit Date: 04/25/2016 Discharge Date: 04/28/16 Disposition: Home or self care Problems and Procedures Admitting Diagnosis: Right TKA hemarthrosis vs infection Principal/Final Diagnosis: same Additional Problems Managed in the Hospital Active Hospital Problems Diagnosis Date Noted ??? Hemarthrosis following procedure 04/25/2016 ??? Essential hypertension 09/03/2011 ICD10 Update Auto Replacement Resolved Hospital Problems Diagnosis Date Noted Date Resolved No resolved problems to display. Principal Procedure: none Date: none Secondary Procedures: none Hospital Course Patient was admitted to the hospital with complaints of right knee pain and swelling s/p R TKA on 03/[address] Colon. Pt tolerated procedure well. Pain well controlled with PO medications. ToleratedPO diet . Patient voided independently and had return of bowel function. Worked with PT and was determine to be a good candidate for discharge to home with close follow up with Dr. De León (primary surgeon). Patient discharged in stable condition to home and will follow up with Dr. De León closely. Allergies and Immunizations No Known Allergies There is no immunization history on file for this patient. Transition of Care Plans Prognosis: good Condition at Discharge Good Assessment at Discharge Vital signs: No data found. Discharge Medications: START taking these medications Sig methocarbamol 500 mg tablet Commonly known as: ROBAXIN 500-1,000 mg, oral, Q6H PRN oxyCODONE 5 mg immediate release tablet Commonly known as: ROXICODONE 5-20 mg, oral, Q3H PRN traMADol 50 mg tablet Commonly known as: ULTRAM 50 mg, oral, Q6H PRN CONTINUE taking these medications Sig aspirin 325 mg tablet 325 mg, DAILY hydroCHLOROthiazide 25 mg tablet Commonly known as: HYDRODIURIL 25 mg, DAILY lisinopril 20 mg tablet Commonly known as: PRINIVIL, ZESTRIL 5 mg, DAILY NORCO 7.5-325 mg per tablet Generic drug: HYDROcodone-acetaminophen 1 Tab, oral, Q6H sulfamethoxazole-trimethoprim 800-160 mg per tablet Commonly known as: BACTRIM/C0-TRIMOXAZOLE DS 1 Tab, oral, Q12H STOP taking these medications cephALEXin 500 mg capsule Commonly known as: KEFLEX Results Pending at Discharge Test results still pending from this admission Procedure Component Value Units Date/Time Anaerobe Culture/Smear (inc. aerobes), Fluid [[id number]] Collected: 04/25/16 1978 Lab Status: Preliminary result Specimen: Other from Synovial Fluid Updated: 04/27/16 1116 Gram Smear Result Mod Polys No bacteria seen Result No growth Relevant Studies at Discharge none Last Lab Results at Discharge BUN: Lab Results Component Value Date BUN 23 04/28/2016 Creatinine: Lab Results Component Value Date CREATININE 1.23 04/28/2016 CBC: Lab Results Component Value Date WBC 5.10 04/28/2016 RBC 4.13 (L) 04/28/2016 HGB 12.7 (L) 04/28/2016 HCT 35.6 (L) 04/28/2016 MCV 86 04/28/2016 MCH 30.8 04/28/2016 MCHC 35.7 04/28/2016 PLT 341 04/28/2016 DIFFTYPE Automated 04/28/2016 SEDRATE 74 (H) 04/25/2016 Electrolytes: Lab Results Component Value Date NA 136 04/28/2016 K 4.1 04/28/2016 CL 97 04/28/2016 CO2 28 04/28/2016 HGB: Lab Results Component Value Date HGB 12.7 (L) 04/28/2016 Discharge Follow Up Appointments Scheduled with [facility] in the next 3 months Appointments and Procedures Recommended to Patient Studies We Will Schedule Nataliia Caruso MD 04/30/2016 7:39 Cosigned by Michael Skinner III, MD at 05/01/2016 17:52 EST documented in this encounter Discharge Instructions * Discharge Instr - Activity* Nataliia Caruso MD - 04/28/2016 7:32 EST Activity as tolerated. Weight bearing as tolerated. See Dr. Colon tomorrow, Sunday 04/29. Please call his office to make an appointment. documented in this encounter Medications at Time of Discharge aspirin 325 mg tablet Take 325 mg by mouth daily. 06/27/2020 hydrochlorothiazi de (HYDRODIURIL) 25 mg tablet Take 25 mg by mouth daily. 06/27/2020 HYDROcodone-aceta minophen (NORCO) 7.5-325 mg per tablet Take 1 Tab by mouth every 6 hours. 06/27/2020 lisinopril (PRINIVIL, ZESTRIL) 20 mg tablet Take 5 mg by mouth daily. 06/27/2020 methocarbamol (ROBAXIN) 500 mg tablet Take 1-2 Tabs by mouth every 6 hours as needed (muscle spasms). 20 Tab 04/28/2016 06/27/2020 oxyCODONE (ROXICODONE) 5 mg immediate release tablet Take 1-4 Tabs by mouth every 3 hours as needed for Pain. Daily Max: 160 mg 20 Tab 04/28/2016 06/27/2020 sulfamethoxazole- trimethoprim (BACTRIM/C0-TRIMO XAZOLE DS) 800-160 mg per tablet Take 1 Tab by mouth every 12 hours. 06/27/2020 traMADol (ULTRAM) 50 mg tablet Take 1 Tab by mouth every 6 hours as needed for Pain. Daily Max: 200 mg 20 Tab 04/28/2016 06/27/2020 documented as of this encounter Ordered Prescriptions Prescription Sig Dispense Quantity Refills Last Filled Start Date End Date traMADol (ULTRAM) 50 mg tablet Take 1 Tab by mouth every 6 hours as needed for Pain. Daily Max: 200 mg 20 Tab 04/28/2016 06/27/2020 oxyCODONE (ROXICODONE) 5 mg immediate release tablet Take 1-4 Tabs by mouth every 3 hours as needed for Pain. Daily Max: 160 mg 20 Tab 04/28/2016 06/27/2020 methocarbamol (ROBAXIN) 500 mg tablet Take 1-2 Tabs by mouth every 6 hours as needed (muscle spasms). 20 Tab 04/28/2016 06/27/2020 documented in this encounter Discharge Disposition Disposition Code Departure Means Destination Home or Self Care documented in this encounter Progress Notes * Kathy Livingston - 04/28/2016 0956 EST I just met with the patient and his brother. Pt. Is dressed and anxious to be discharged. Brother also indicates he is just waiting to get out of hospital. I discussed home care with the patient and his brother. Patient states that he has been receiving home care visits through Dr. Colon in his hometown. He has a follow up with Dr. Colon tomorrow, and, expects that Dr. Colon will resume orders for home care visits. Brother and patient state they have no needs or questions related for discharge. Pt. Has an appt with Dr. Colon tomorrow. Pt discharged to home, home care orders via Dr. Colon, his brother provided the transportation. Kathy Livingston RN/[facility] #[id number]. * Camille Rogers, PT - 04/28/2016 0812 EST [facility] Physical TherapyContact Note Date of Service: 04/28/2016 Pts chart noted with discharge order already in place. Communicated with ortho resident Zuly whoreported that pt was ready for DC and did not need PT today. PT eval not initiated. If pts needs change, please reinitiate order. Camille Rogers PT 04/28/2016 8:12 [phone] * Nataliia Caruso MD - 04/28/2016 0809 EST Orthopaedic Surgery Progress Note Admit Date: 04/25/2016 Hospital Day: LOS: 3 days Problem: R knee hemarthrosis vs septic arthritis Procedure: Bedside aspiration Subjective: Ready for discharge. No complaints. Objective: Blood pressure 123/82, pulse 83, temperature 36.8 ??C (98.2 ??F), temperature source Oral, resp. rate 16, height 167.6 cm (66), weight 75.8 kg (167 lb), SpO2 98 %. 04/27 700 - 04/28 659 In: 1390 [P.O.:1390] Out: 1400 [Urine:1400] General: NAD, A/O x3 Cardio: no peripheral cyanosis Respiratory: Non-labored Right Lower Extremity: Skin: Erythema around knee, minimal swelling Vascular: 2+ DP & PT pulses, Cap Refill <2 sec, Warm Sensation: Intact in Sural, Tibial, Sup & Deep Peroneal, Saphenous distributions Wound: Dressing c/d/i. Incision c/d/i. Motor: GSC TA EHL FHL Affected Extremity 10/03 5/5 5/ 5/ Na/K/Cl/CO2: 135/4.7/100/27 (04/27 624) BUN/Cr/glu/ALT/AST/amyl/lip: 21/1.38/93/--/--/--/-- (04/27 624) WBC/Hgb/Hct/Plts: 5.10/12.7/35.6/341 (04/28 718) PT/INR/PTT: 19.8/1.7/-- (04/28 718) Assessment: Fredi Vargas is a 61 y.o. year old male s/p bedside aspiration of his R knee s/p R TKA on 03/31. Final cultures with no growth. Plan: ?? ID consultation appreciated ?? Pain control ?? Weight Bearing: WBAT RLE ?? Antibiotics: none needed ?? DVT Prophy: SCDs ?? Diet: regular ?? Discharge to home today, follow up with Dr. Colon in [facility] Nataliia Caruso MD 04/28/2016 8:09 * Camille Rogers, PT - 04/27/2016 0902 EST [facility] Therapy[facility] Note Date of Service: 04/27/2016 Checked pt status regarding appropriateness for PT eval this AM. Per chart and MD, team is still deciding plan regarding a possible trip to the OR today. MD Tapia asked to hold on PT for today while plan is established. PT to continue to follow pts status and will complete PT eval when appropriate. Camille Rogers, PT 04/27/2016 9:02 [phone] * Franko Tapia MD - 04/27/2016 0842 EST Orthopaedic Surgery Progress Note Admit Date: 04/25/2016 Hospital Day: LOS: 2 days Problem: R knee hemarthrosis vs septic arthritis Procedure: Bedside aspiration Subjective: Pain controlled, no fevers or chills, possible OR today Objective: Blood pressure 120/81, pulse 83, temperature 36 ??C (96.8 ??F), temperature source Tympanic, resp. rate 16, height 167.6 cm (66), weight 75.8 kg (167 lb), SpO2 97 %. 04/26 0700 - 04/27 0659 In: 4667 [P.O.:720; I.V.:3697] Out: 1600 [Urine:1600] General: NAD, A/O x3 Cardio: RRR Respiratory: Non-labored Right Lower Extremity: Skin: Erythema decreased from prior, swelling decreased from prior Vascular: 2+ DP & PT pulses, Cap Refill <2 sec, Warm Sensation: Intact in Sural, Tibial, Sup & Deep Peroneal, Saphenous distributions Wound: Dressing c/d/i. Incision c/d/i. Motor: GSC TA EHL FHL Affected Extremity 5/ 5/5 5/5 5/5 Na/K/Cl/CO2: 135/4.7/100/27 (04/27 624) BUN/Cr/glu/ALT/AST/amyl/lip: 21/1.38/93/--/--/--/-- (04/27 624) WBC/Hgb/Hct/Plts: 4.06/11.3/32.4/321 (04/27 624) PT/INR/PTT: 27.9/2.3/-- (04/27 624) Assessment: Fredi Vargas is a 61 y.o. year old male s/p bedside aspiration of his R knee s/p R TKA on 03/31. No growth to date on cultures, 7500 cells 92% PMNs. Plan: ?? ID consultation appreciated ?? Pending possibly for OR later today ?? Will need FFP for elevated INR if going to surgery ?? Pain control ?? Weight Bearing: NWB RLE ?? Antibiotics: Vancomycin ?? DVT Prophy: SCDs ?? Diet: NPO for now ?? PT Discharge Recommendation: Pending I will be post-call today. Please contact the orthopaedic consult resident with questions. Franko Tapia MD 04/27/2016 8:46 Cosigned by Michael Skinner III, MD at 04/27/2016 18:44 EST Associated attestation - Michael Skinner MD - 04/27/2016 4590 EST Admission date: 04/25/2016 1. Hemarthrosis following procedure, initial encounter 2. Infected prosthetic knee joint, initial encounter 3. Chronic kidney disease, stage III (moderate) I have personally rounded and met with Fredi Vargas today to check on his progress. His questions were answered and I have not identified any care issues other than those in the resident progressnotes from today. Michael Skinner III, MD Multiple phone calls and text communications between myself and Dr. Luis Gann since Thursday. [address] Gann today Rounded w Dr Valentino earlier then w Dr. Santacruz then just now Dr. Romero and I agreed that based on exam and history not likely infected but cant rule out. Plan was to D/C abx and wait for final cultures. If final cultures remain negative (just came back ! And still negative) and no worsening by tomorrow then will d/c patient to f/u w Dr. Gann on Thursday at his office (needs to call Dr. Spence officetomorrow!) This was discussed with team, floor nurse, patient, and Dr. Gann. Admission date: 04/25/2016 1. Hemarthrosis following procedure, initial encounter 2. Infected prosthetic knee joint, initial encounter 3. Chronic kidney disease, stage III (moderate) I have personally rounded and met with Fredi Vargas today to check on his progress. His questions were answered and I have not identified any care issues other than those in the resident progressnotes from today. Michael Skinner III, MD * Melonie Bravo, ARON - 04/26/2016 1948 EST Data: Pain control and mobility Action: Patient ambulating with walker to and from bathroom with contact guard for cords/lines/tubes. Patient continues on scheduled tylenol as well as oxy per PRN orders. Response: Patient explains that medication takes the edge off his pain, however, the knee continuesto feel like it is burning. Ice offered to patient, however, patient declined this intervention. Patient continues on IV abx as well as IVFs per orders. NPO after midnight for possible wash-out tomorrow 04/27/2016. Melonie Bravo RN 04/26/2016 19:49 * Chayo Copeland - 04/26/2016 1145 EST [facility] Physical TherapyContact Note Date of Service: 04/26/2016 Physical Therapy order received, chart reviewed and discussed with nursing. Patient has high pain levels and may be having procedure today. Need to clarify wt bearing order (WBAT order but NWB LE written in MD note today). Plan to hold physical therapy until plan is more clear. CHAYO COPELAND, PT 04/26/2016 11:46 * Gilmer Kelsey III, MD - 04/26/2016 9335 EST Orthopaedic Surgery Progress Note Admit Date: 04/25/2016 Hospital Day: LOS: 1 day Problem: R knee hemarthrosis vs septic arthritis Procedure: Bedside aspiration Subjective: Notes that his pain is much better today Denies f/c/n/v/cp/sob We discussed possible OR vs. abx therapy and that we will look to ID for further recommendations Objective: Blood pressure 107/70, pulse 83, temperature 36.1 ??C (97 ??F), temperature source Tympanic, resp. rate 18, height 167.6 cm (66), weight 75.8 kg (167 lb), SpO2 97 %. 04/25 0700 - 04/26 659 In: 1086.7 [P.O.:600; I.V.:486.7] Out: 1000 [Urine:1000] General: NAD, A/O x3 Cardio: RRR Respiratory: Non-labored Right Lower Extremity: Skin: Ecchymotic about knee at aspiration sites, erythema decreased from prior, swelling decreased from prior Vascular: 2+ DP & PT pulses, Cap Refill <2 sec, Warm Sensation: Intact in Sural, Tibial, Sup & Deep Peroneal, Saphenous distributions Wound: Dressing c/d/i. Incision c/d/i. Motor: GSC TA EHL FHL Affected Extremity 10/03 55 5 5/ Na/K/Cl/CO2: 132/4.6/96/ (04/26 558) BUN/Cr/glu/ALT/AST/amyl/lip: /1.50/93/--/--/--/-- (04/26 558) WBC/Hgb/Hct/Plts: 5.88/12.0/33.9/373 (04/26 558) PT/INR/PTT: 33.3/2.7/-- (04/26 558) Assessment: Fredi Vargas is a 61 y.o. year old male s/p bedside aspiration of his R knee s/p R TKA on 03/31. No growth to date on cultures, 7500 cells 92% PMNs. Will follow-up ID recs, currently on vanc. Plan: ?? Continue IV vancomycin ?? F/u ID recommendations ?? Pain control ?? Weight Bearing: NWB RLE ?? Antibiotics: Vancomycin ?? DVT Prophy: SCDs ?? Diet: NPO - operative decision pending at this time ?? PT Discharge Recommendation: Pending Gilmer Kelsey III, MD 7:38 04/26/2016 Pager: [phone] Please note that I am post-call and that all questions should be directed to Dr. Tapia , the on-call ortho resident. documented in this encounter Consult Notes * Taqueria Collins MD - 04/26/2016 1001 EST ID CONSULT Requested by: Dr. 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 The patient is a limited historian who was helped by his brother, Madhu. The history I was able to reconstruct is as follows: 1. He underwent a right total knee replacement at [facility] in [place] on March 31, 2016. He has never made a good recovery and the knee has never been right since. 2. On approximately April 10 he was started on cephalexin 500 4 times a day and Bactrim double strength twice a day. I cannot be sure whether these were started sequentially or at the same time but it sounds like he has been on antibiotics continually until he was admitted here. 3. On March 14 he was readmitted to [facility] for an unknown intravenous antibiotic. The kneewas aspirated on April 14, while on antibiotics, and the culture was negative. 4. He was discharged on about April 17 and told to resume his oral antibiotics which he did. 5. The knee remains swollen and quite painful with very limited range of motion. He describes the pain as burning. PMH: Right total knee replacement March 31, 2016 as above, chronic kidney disease, hypertension, right knee scope in 2004 MEDS: List reviewed. Antibiotics: Vancomycin 1250 once a day, day 1 Cephalexin and Bactrim prior to admission, beginning April 10? IV antibiotics April 14-, unknown ALL: NKDA SOCIAL: Lives in [place]. No tobacco. On short-term disability. Brother is Madhu. FAMILY: Mother committed suicide, father with kidney disease ROS: No fever although he has had some sweats. Right knee has been bothering him for weeks. It has been swollen and painful with very limited range of motion. It never got better with any of the treatments provided. No shortness of breath, chest pain, abdominal pain, dysuria, rash. Other review systems negative on10 point review. EXAM: Appears well Afebrile Blood pressure 107/70 Room air No teeth Neck supple Chest clear Cardiac rhythm regular without a murmur Abdomen soft and nontender Left lower extremity looks fine Right knee is swollen and warm. Original surgery is well-healed. No cellulitis. Very restricted range of motion to just a few degrees. No rash Neuro nonfocal DATA: White count 5.9 Creatinine 1.5 with GFR 50 Sedimentation rate 74, CRP 47.8 Right knee film with total knee and suprapatellar effusion Blood cultures ??4 sent (on antibiotics) Knee fluid April 25 with 7,573 white cells, 92% polys, 497,000 red cells, no crystals, Gram stain with moderate polys, culture pending (on antibiotics) Knee fluid April [address] [facility] no growth (on antibiotics). I called. IMPRESSION: 1. 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 Chronic kidney disease 3. Elevated inflammatory markers The knee has been swollen and painful for weeks, since surgery. This is not acute. He has failed both oral and IV antibiotics. Cultures have always been performed while on antibiotics and have not yet been diagnostic. I think it is unlikely that he will experience resolution of signs and symptoms with antibiotics alone. He does not have cellulitis and that cannot be used to explain his problem. Isuppose the only viable alternative diagnosis would be hemarthrosis. SUGGESTIONS: 1. Continue vancomycin 2. Check trough level on Thursday 3. Consider washout of joint, although if infected, salvage may not be achievable. Could save a specimen of synovial fluid to send for PCR. 4. Await aspirate culture although unlikely to be positive since performed while on antibiotics Dennis * Gilmer Kelsey III, MD - 04/25/2016 8997 EST 04/25/2016, 17:05 Orthopaedic Surgery H&P Consultation requested by Dominik regarding R knee pain CC: R knee pain HPI: Fredi Vargas is a 61 y.o. male s/p R TKA on 03/[address] Colon who presents with 3 weeks of chronic knee pain and swelling. He was initially in PT but this was d/c'd in the setting of his swollen knee. He is uncomfortable at all times and is minimally ambulatory with a walker which he did not require before surgery. He has been evaluated multiple times and on Apr 10 was placed on antibioticswhich include keflex and bactrim. These have not changed his symptoms. He underwent image guided aspiration at the OSH which has resulted as no bacterial growth. A few days ago he took double his dose of warfarin requiring Vitamin K reversal but he contends that his knee did not increase its swelling in relation to this. Ambulatory status: Walker PCP: Gilmer Lin PMH: History reviewed. No pertinent past medical history. PSH: Past Surgical History Procedure Laterality Date ??? Joint replacement ??? Appendectomy Meds: No current facility-administered medications on file prior to encounter. Current Outpatient Prescriptions on File Prior to Encounter Medication Sig Dispense Refill ??? aspirin 325 mg tablet Take 325 mg by mouth daily. ??? hydrochlorothiazide (HYDRODIURIL) 25 mg tablet Take 25 mg by mouth daily. ??? lisinopril (PRINIVIL, ZESTRIL) 20 mg tablet Take 5 mg by mouth daily. Keflex Bactrim Allergies: No Known Allergies FHx: No family history on file. SH: The patient works at [employer] Social History Occupational History ??? Not on file. Social History Main Topics ??? Smoking status: Never Smoker ??? Smokeless tobacco: Not on file ??? Alcohol use No ??? Drug use: No ??? Sexual activity: Not on file ROS: Negative other than noted in HPI above Objective: Blood pressure 100/76, temperature 36.4 ??C (97.5 ??F), resp. rate 18, height 167.6 cm (66), weight 75.8 kg (167 lb), SpO2 100 %. Exam: Gen: AAox3, NAD Resp: non-labored Card: no evidence of cyanosis Abd: soft, non-tender Right Lower Extremity: Appearance: Swollen, erythematous, no open lacerations or abrasions Palpation: TTP exquisitely at superomediala spect of knee and along lateral joint line, tender withany range of motion ROM: able to flex to 40 degrees before experiencing severe pain SILT Saphenous, Sural Deep Peroneal, Superficial Peroneal, Tibial nerve distributions Strength Iliopsoas Hamstring Quad Gastroc Tib.ant. Ext Swann Flex Swann Right 4 4- 4- 5 5 5 5 Vascular: DP 2+. PT 2+. Labs: WBC/Hgb/Hct/Plts: 6.75/13.6/38.7/398 (04/25 1422) Na/K/Cl/CO2: 136/4.5/95/26 (04/25 1422) PT/INR/PTT: 32.3/2.7/-- (04/25 1422) Lab Results Component Value Date SEDRATE 74 (H) 04/25/2016 Diagnostic Imaging: XR R Knee: R TKA components appear stable. Suprapatellar joint effusion noted. No subcutaneous emphysema Procedure: Pt informed to need for aspiration and he offered verbal consent Prepped and draped sterilely with chlorhexidine Skin blocked with 1% lidocaine 2 attempts at a superolateral entry and 1 attempt at an anterolateral entry were made with an 18G spinal needle Only 3cc of serosanguinous fluid were attained Sent for culture- pending Gram stain- no bacteria, seen, moderate polys Synovial cell count: [id number] 92% Assessment: Fredi Vargas is a 61 y.o. male with R TKA on 03/31 with persistent effusion since then who has been treated with 10 days Plan: 1. Admit to ortho 2. F/u cultures 3. Will hold off on OR at this point as does not meet infectious parameters 4. Diet: Renal 5. Vanc 15mg/kilo one time per day per ID since an aspiration has been sent d/w: Dr. Skinner, Dr. Star Kelsey III, MD 04/25/2016 17:05 [id number] Cosigned by Michael Skinner III, MD at 04/27/2016 18:47 EST documented in this encounter ED Notes * Pola Meng 04/25/20162010 EST Blood drawn via butterfly needle per protocol, cultures tube(s) sent to lab per order. * Finn Andrade PA - 04/25/2016 1852 EST Assumed care from Ray lehman at 1815. * Liset Latham RN - 04/25/2016 1545 EST ORTHO in with patient for evaluation of knee. Family at bedside. * Ray Lehman PA - 04/25/2016 1357 EST DOS: 04/25/2016 Chief Complaint Patient presents with ??? Knee Pain Patient had right knee surgery on the 31 of March. Right knee red and swollen Saw his PCP Today HPI HPI Comments: I, Marybel Joe, am scribing for AUTUMN Kaplan while she is personally performingthe service. Marybel Joe 04/25/2016 13:58 Fredi Vargas is a 61 y.o. male with a history of essential hypertension and stage 3 chronic kidney disease who presents with constant erythema and edema to his right knee since knee surgery on March 31, 2016. Pt's brother states he had 4 days of IV antibiotics following the surgery. Surgerytook place on March 31 by , in [facility]. Approximately one week later when stitches were removed patient was continually complaining of swelling around the knee. By approximately April 10 he was recently seen placed on antibiotics which have made no difference. He has complainedof chills there is no recorded fevers patient was recently started on Keflex and Bactrim. Yesterdayhe did complain of nausea and poor appetite otherwise no other systemic symptoms. Patient was seen by his primary care provider today and sent in to this ER for further evaluation. The history is provided by the patient, a relative and medical records. Review of Systems Review of Systems Constitutional: Positive for activity change, appetite change and fatigue. Negative for chills, diaphoresis and fever. HENT: Negative for dental problem. Eyes: Negative for photophobia and visual disturbance. Respiratory: Negative for cough, chest tightness and shortness of breath. Cardiovascular: Negative for chest pain. Gastrointestinal: Negative for abdominal pain, diarrhea, nausea and vomiting. Genitourinary: Negative for difficulty urinating, flank pain, testicular pain and urgency. Musculoskeletal: Positive for arthralgias, gait problem and joint swelling. Negative for back pain,myalgias and neck pain. Skin: Positive for color change. Negative for pallor, rash and wound. Neurological: Negative for dizziness, syncope and numbness. Hematological: Negative for adenopathy. Does not bruise/bleed easily. Psychiatric/Behavioral: Negative for behavioral problems. All other systems reviewed and are negative. The patient's past medical, family and social history was reviewed and updated as needed. No Known Allergies Vital Signs Vitals Reassessment?: Yes Temp: 36.8 ??C (98.2 ??F) Temp src: Oral Pulse: 83 Heart Rate: 79 BPM Resp: 16 SpO2: 98 % BP: 123/82 BP MAP: 76 mm Hg BP Device: BP Machine Patient Position: Semi fowlers BP Cuff Location: Right arm O2 Flow Rate (L/min): 0 l/min Physical Exam Constitutional: He is oriented to person, place, and time. He appears well- developed and well-nourished. No distress. Sitting in chair HENT: Head: Normocephalic and atraumatic. Right Ear: External ear normal. Left Ear: External ear normal. Nose: Nose normal. Mouth/Throat: Oropharynx is clear and moist. Eyes: Conjunctivae are normal. Pupils are equal, round, and reactive to light. Right eye exhibits no discharge. Left eye exhibits no discharge. Neck: Normal range of motion. Neck supple. No tracheal deviation present. Cardiovascular: Normal rate, regular rhythm and normal heart sounds. Pulmonary/Chest: Effort normal and breath sounds normal. No respiratory distress. He has no wheezes. He has no rales. Abdominal: Soft. He exhibits no distension. There is no tenderness. There is no rebound and no guarding. Musculoskeletal: He exhibits tenderness. He exhibits no edema. Right knee: He exhibits decreased range of motion, swelling, effusion and erythema. He exhibits no ecchymosis, no deformity, no laceration, normal alignment and no bony tenderness. Tenderness found. Medial joint line tenderness noted. No MCL, no LCL and no patellar tendon tenderness noted. Neurological: He is alert and oriented to person, place, and time. He has normal strength. He is not disoriented. No sensory deficit. He exhibits normal muscle tone. Skin: Skin is warm and dry. No rash noted. Psychiatric: He has a normal mood and affect. Nursing note and vitals reviewed. RESULTS Relevant Data Procedures Consult Orders Procedures ??? Consult Social Work ED COURSE A medical screening exam was performed. 61 y/o male presented with edema and erythema to his right knee. Physical exam was significant for VSS. Patient seen by me, the PA for an initial evaluation. An initial workup was started. Patient given instructions to wait to be seen until another provider can take over care. Given strict instructionsto not leave the department as workup has just begun and there could be further tests and regimens necessary to complete care. ASSESSMENT AND PLAN Final diagnoses: Hemarthrosis following procedure, initial encounter DISPOSITION: Admitted The patient's pain was managed to an adequate level weighing risk vs. benefit of further medications. Upon departure from the Emergency Department, the patient's pain was on a zero to ten scale. Condition at departure from the Emergency Department: PCP: Gilmer Lin [facility] This documentation is recorded by Marybel Joe acting as Scribe under the direction and presence of AUTUMN Kaplan. AUTUMN Kaplan: I personally performed the services recorded by the scribe in my presence. I confirm the scribe's documentation has been reviewed by me to accurately and completely record my work, treatment, procedures, and medical decision making. Dr. Orquidea Bell was available for supervision. 04/28/2016 10:14 No flowsheet data found. documented in this encounter Miscellaneous Notes * Plan of Care - Eveline Thomas RN - 04/28/2016 1040 EST Problem: Daily Care Plan Goals Goal: Care Plan Documentation Outcome: Met This Shift 04/28/16 Status at discharge, nursing note Data: At start of shift, pt is stating that he is ready to go home as soon as possible. Pt reports that he is in 7/10 pain in his R knee, and he was given tramadol and robaxin just before d/c. He is walking independently, using FW walker. He has +2 edema in R knee, his knee incision is approximated, the area is sl reddened. He has +CSMTs in R foot, as well as palpable pulses, both DP and PT. His vital signs are stable andwnl. Pt is taking his normal amount of food/drink. He reports that he passed a BM this AM, and is voiding without problems. He has a very supportive brother at his bedside. Action: provided pt w/his copy of AVS, reviewed AVS details c pt, provided pt w/his scripts; clarified for pt he is not to resume abx once home. Response: pt left in WC headed for home c one of his brothers at 1030. Eveline Thomas RN 04/28/2016 10:34 * Plan of Care - Madelaine Ha RN - 04/28/2016 9843 EST Problem: Daily Care Plan Goals Goal: Care Plan Documentation Outcome: Met This Shift 04/27/162012 Care Plan Focus Area of Focus Mobility Goal This Shift pt will walk 3x this shift Data: Pt in bed at start of shift. Orders to ambulate 3X daily. Action: Educated pt on importance of maximizing mobility. Encouraged ambulation. Response: Pt states that he understands education. Pt walked in the halls two times with this nurseand once by himself. States, 'Im looking forward to being discharged today.' Madelaine Ha RN 04/28/2016 4:33 * Plan of Care - Teressa Ng RN - 04/27/2016 0702 EST Problem: Daily Care Plan Goals Goal: Care Plan Documentation Outcome: Met This Shift Data: pt npo for possible I&D of R knee. Pt 3 weeks post op replacement and c/o possible infection. Knee is warm to touch and swollen. Pt Complains of a burning pain when attempting to use it. Pain only tolerable if pt is at rest. Action: Pt given ultram for discomfort which he stated helped. Oxy condone not given as pt stated he was having funny sensations and heard voices in head. Pt did not report any relief in pain. Response: Drs in to consult and it was decided pt was not to have I&D at this time. Antibiotic d/c'd. Drs felt at this time pt is having a delay in healing but no evidence of infection. Recommendation is aggressive PT, and will review cultures when returned. Pt candidate for discharge tomorrow. Teressa Ng RN 04/27/2016 15:32 * Plan of Care - Madelaine Ha RN - 04/27/2016 0455 EST Problem: Daily Care Plan Goals Goal: Care Plan Documentation Outcome: Ongoing 04/26/162054 Care Plan Focus Area of Focus Pain/ Comfort Goal This Shift pain will be manageable Nursing Pain Note D: At start of shift patient c/o 7/10. Pain located in the Knee. Patient described pain as 'burninglike a fire'. A: Patient receiving scheduled and PRN medications. See MAR. Provided the following non-pharmacologic interventions: repositioning and ice. R: Patient sleeping comfortably. Declines ice as intervention. Verbalized that pain later in shift is tolerable. Will continue to monitor and adjust interventions as necessary. Madelaine Ha RN 04/27/2016 4:54 * Plan of Care - Nimo Loera RN - 04/26/2016 0251 EST Problem: Daily Care Plan Goals Goal: Care Plan Documentation Outcome: Ongoing 04/26/16 0021 Care Plan Focus Area of Focus Communication Goal This Shift Finishing admiting patient Data: Patient admitted this evening for R knee pain/swelling. Fluid aspiration done in ER, culturespending. Patient rating pain at 5/10 at start of shift. Action: Oriented patient to unit/call joya system/bed control. Admission questions asked. Educated patient on plan of care/Renal diet&FR/pain control. Started IVF, IV vanco administered. Medicated patient for pain with tylenol/oxycodone/robaxin. Elevated RLE. Response: Patient verbalized understanding of teaching and denied questions at this time Patient sleeping comfortably at this time, call joya within reach. Will continue to monitor and intervene as necessary. Nimo Loera RN 04/26/2016 2:44 * Plan of Care - Bailey Griffin RN - 04/25/2016 2308 EST Data: Pt arrived to unit @ 2200 w/ uncontrolled knee pain from previous TK @ [facility]- pt LOCx3; lungs, cardiac, and bowels all WDL; pain 5/10 as long as NWB; 1 assist+FWW; CSMTs WDL; voiding and passing gas; last BM 1125 AM Action: acquainted pt to room and assessed; pt's friend staying over night; beverage and jello provided Response: was only w/ pt for an hour; was not able to ask admission questions, but settled pt in; call joya in reach, will continue to monitor Bailey Griffin RN 04/25/2016 23:03 documented in this encounter Plan of Treatment Not on file documented as of this encounter Procedures Procedure Name Priority Date/Time Associated Diagnosis Comments PROTIME Routine 04/28/2016 7:18 EST COMPLETE BLOOD COUNT AND DIFFERENTIAL Routine 04/28/2016 7:18 EST BUN Routine 04/28/2016 7:18 EST GLUCOSE, SERUM Routine 04/28/2016 7:18 EST CREATININE Routine 04/28/2016 7:18 EST ELECTROLYTES Routine 04/28/2016 7:18 EST PROTIME Routine 04/27/2016 6:24 EST COMPLETE BLOOD COUNT AND DIFFERENTIAL Routine 04/27/2016 6:24 EST BUN Routine 04/27/2016 6:24 EST GLUCOSE, SERUM Routine 04/27/2016 6:24 EST CREATININE Routine 04/27/2016 6:24 EST ELECTROLYTES Routine 04/27/2016 6:24 EST PROTIME Routine 04/26/2016 5:58 EST COMPLETE BLOOD COUNT AND DIFFERENTIAL Routine 04/26/2016 5:58 EST BUN Routine 04/26/2016 5:58 EST GLUCOSE, SERUM Routine 04/26/2016 5:58 EST CREATININE Routine 04/26/2016 5:58 EST ELECTROLYTES Routine 04/26/2016 5:58 EST HEMOGLOBIN A1C Routine 04/25/2016 23:35 EST TYPE AND SCREEN Routine 04/25/2016 23:31 EST BACTERIAL CULTURE, BLOOD Routine 04/25/2016 19:56 EST BACTERIAL CULTURE, BLOOD Routine 04/25/2016 19:55 EST ANAEROBE CULTURE/SMEAR(INC. AEROBES), FLUID STAT 04/25/2016 16:59 EST CRYSTAL ANALYSIS FLUID ONLY STAT 04/25/2016 15:30 EST SYNOVIAL CELL COUNT STAT 04/25/2016 1 5:30 EST FLUID DIFFERENTIAL Routine 04/25/2016 15 :30 EST KNEE 4 OR MORE VIEWS STAT 04/25/2016 15:01 EST BACTERIAL CULTURE, BLOOD Routine 04/25/2016 14:23 EST BACTERIAL CULTURE, BLOOD Routine 04/25/2016 14:22 EST SED RATE STAT 04/25/2016 14:22 EST PROTIME STAT 04/25/2016 14:22 EST COMPLETE BLOOD COUNT AND DIFFERENTIAL STAT 04/25/2016 14:22 EST C REACTIVE PROTEIN STAT 04/25/2016 14 :22 EST BUN STAT 04/25/2016 14:22 EST GLUCOSE, SERUM STAT 04/25/2016 14:22 EST CREATININE STAT 04/25/2016 14:22 EST ELECTROLYTES STAT 04/25/2016 14:22 EST documented in this encounter Results * BUN (04/28/2016 7:18 EST) BUN 23 10 - 26 mg/dl 04/28/2016 8:16 EST [facility] Blood specimen (specimen) BLOOD SPECIMEN / Unknown 04/28/2016 7:18 EST 04/28/2016 7:39 EST us Michael Skinner MD CHEMISTRY & BLOOD GAS OR DERABLES Final Result [facility] [address] [place] [address] * CREATININE (04/28/2016 7:18 EST) Creatinine 1.23 0.66 - 1.25 mg/dl 04/28/2016 8:16 [facility] GFR, Calculated 64 >60 ml/min/1.7 3m2 04/28/2016 8:16 [facility] Comment: eGFR calculated using CKD-EPI equation for non Americans. Multiply eGFR by 1.16 for Americans. Blood specimen (specimen) BLOOD SPECIMEN / Unknown 04/28/2016 7:18 EST 04/28/2016 7:39 EST Michael Skinner MD CHEMISTRY & BLOOD GAS OR DERABLES Final Result Performing Organization Address [facility] de Phone Number [facility] [address] [place] [address] * ELECTROLYTES (04/28/2016 7:18 EST) Sodium 136 136 - 145 mEq/L 04/28/2016 8:16 [facility] Potassium 4.1 3.5 - 5.0 mEq/L 04/28/2016 8:16 [facility] Chloride 97 96 - 110 mEq/L 04/28/2016 8:16 [facility] CO2 28 22 - 32 mEq/L 04/28/2016 8:16 [facility] Comment:Note new reference sakina hylton 03/18/16 Blood specimen (specimen) BLOOD SPECIMEN / Unknown 04/28/2016 7:18 EST 04/28/2016 7:39 EST Michael Skinner MD CHEMISTRY & BLOOD GAS OR DERABLES Final Result Performing Organization Address [facility] Co de Phone Number [facility] [address] [place] [address] * (ABNORMAL) GLUCOSE, SERUM (04/28/2016 7:18 EST) Glucose, Serum 109(H) 70 - 100 mg/dl 04/28/2016 8:16 [facility] Blood specimen (specimen) BLOOD SPECIMEN / Unknown 04/28/2016 7:18 EST 04/28/2016 7:39 EST Michael Skinner MD CHEMISTRY & BLOOD GAS OR DERABLES Final Result [facility] [address] [place] [address] * (ABNORMAL) HEMAGRAM AND DIFFERENTIAL (04/28/2016 7:18 [facility]) WBC 5.10 4.0 - 10.4 K/cmm 04/28/2016 7:54 [facility] RBC 4.13(L) 4.36 - 5.78 M/cmm 04/28/2016 7:54 [facility] Hemoglobin 12.7(L) 13.8 - 17.3 gm/dl 04/28/2016 7:54 [facility] HCT 35.6(L) 39.5 - 50.2 % 04/28/2016 7:54 [facility] MCV 86 81 - 95 fl 04/28/2016 7:54 [facility] MCH 30.8 27.6 - 33.0 pg 04/28/2016 7:54 [facility] MCHC 35.7 32.8 - 36.4 gm/dl 04/28/2016 7:54 [facility] RDW-CV 12.2 11.8 - 14.1 % 04/28/2016 7:54 [facility] RDW-SD 38.9 36.5 - 45.9 fl 04/28/2016 7:54 [facility] PLT 341 141 - 377 K/cmm 04/28/2016 7:54 [facility] MPV 8.4(L) 9.5 - 12.7 fl 04/28/2016 7:54 [facility] % Neutrophils 61.7 % 04/28/2016 7:54 [facility] % Lymphocytes 23.5 % 04/28/2016 7:54 [facility] % Monocytes 11.2 % 04/28/2016 7:54 [facility] % Eosinophils 2.4 % 04/28/2016 7:54 [facility] % Basophils 0.6 % 04/28/2016 7:54 [facility] % Immature Grans 0.6 % 04/28/2016 7:54 [facility] ABS Neutrophils 3.15 2.20 - 8.85 K/cmm 04/28/2016 7:54 [facility] ABS Lymphs 1.20 1.09 - 3.30 K/cmm 04/28/2016 7:54 [facility] ABS Monocytes 0.57 0.1 - 0.8 K/cmm 04/28/2016 7:54 [facility] ABS Eosinophils 0.12 0.03 - 0.61 K/cmm 04/28/2016 7:54 [facility] ABS Basophils 0.03 0.01 - 0.11 K/cmm 04/28/2016 7:54 [facility] ABS Immature Grans 0.03 0 - 0.06 K/cmm 04/28/2016 7:54 [facility] Type of Diff: Automated 04/28/2016 7:54 [facility] Blood specimen (specimen) BLOOD SPECIMEN / Unknown 04/28/2016 7:18 EST 04/28/2016 7:39 EST us Michael Skinner MD PACKAGES & DNA PROBE ORD ERABLES Final Result Performing Organization Address City/State/[facility] Co de Phone Number [facility] [address] [place] [address] * (ABNORMAL) PROTIME (04/28/2016 7:18 EST) Pro Time 19.8(H) 10.3 - 13.1 secs 04/28/2016 8:01 [facility] Comment: New prothrombin t john range effective 02/26/16 I.N.R. 1.7(H) 0.9 - 1.1 Ratio 04/28/2016 8:01 [facility] Comment: Moderate Intensity Coumadin INR = 2.0-3.0 Adjustments in anticoagulant therapy dose should be based upon the INR and NOT the Pro Time. Blood specimen (specimen) BLOOD SPECIMEN / Unknown 04/28/2016 7:18 EST 04/28/2016 7:39 EST Michael Skinner MD HEMATOLOGY & PF4 ORDERAB LES Final Result Performing Organization Address [facility] Co de Phone Number [facility] [address] [place] [address] * BUN (04/27/2016 6:24 EST) BUN 21 10 - 26 mg/dl 04/27/2016 7:22 [facility] Blood specimen (specimen) BLOOD SPECIMEN / Unknown 04/27/2016 6:24 EST 04/27/2016 6:35 EST Michael Skinner MD CHEMISTRY & BLOOD GAS OR DERABLES Final Result Performing Organization Address [facility] de Phone Number [facility] [address] [place] [address] * (ABNORMAL) CREATININE (04/27/2016 6:24 EST) Creatinine 1.38(H) 0.66 - 1.25 mg/dl 04/27/2016 7:22 [facility] GFR, Calculated 56(L) >60 ml/min/1.7 3m2 04/27/2016 7:22 [facility] Comment: eGFR calculated using CKD-EPI equation for non Americans. Multiply eGFR by 1.16 for Americans. Blood specimen (specimen) BLOOD SPECIMEN / Unknown 04/27/2016 6:24 EST 04/27/2016 6:35 EST Michael Skinner MD CHEMISTRY & BLOOD GAS OR DERABLES Final Result Performing Organization Address [facility] Co de Phone Number [facility] [address] [place] [address] * (ABNORMAL) ELECTROLYTES (04/27/2016 6:24 EST) Sodium 135(L) 136 - 145 mEq/L 04/27/2016 7:22 [facility] Potassium 4.7 3.5 - 5.0 mEq/L 04/27/2016 7:22 [facility] Chloride 100 96 - 110 mEq/L 04/27/2016 7:22 [facility] CO2 27 22 - 32 mEq/L 04/27/2016 7:22 [facility] Comment:Note new reference sakina hylton 03/18/16 Blood specimen (specimen) BLOOD SPECIMEN / Unknown 04/27/2016 6:24 EST 04/27/2016 6:35 EST Michael Skinner MD CHEMISTRY & BLOOD GAS OR DERABLES Final Result Performing Organization Address [facility] Co de Phone Number [facility] [address] [place] [address] * GLUCOSE, SERUM (04/27/2016 6:24 EST) Glucose, Serum 93 70 - 100 mg/dl 04/27/2016 7:22 [facility] Blood specimen (specimen) BLOOD SPECIMEN / Unknown 04/27/2016 6:24 EST 04/27/2016 6:35 EST Michael Skinner MD CHEMISTRY & BLOOD GAS OR DERABLES Final Result Performing Organization Address [facility] de Phone Number [facility] [address] [place] [address] * (ABNORMAL) HEMAGRAM AND DIFFERENTIAL (04/27/2016 6:24 EST) WBC 4.06 4.0 - 10.4 K/cmm 04/27/2016 6:51 [facility] RBC 3.73(L) 4.36 - 5.78 M/cmm 04/27/2016 6:51 [facility] Hemoglobin 11.3(L) 13.8 - 17.3 gm/dl 04/27/2016 6:51 [facility] HCT 32.4(L) 39.5 - 50.2 % 04/27/2016 6:51 [facility] MCV 87 81 - 95 fl 04/27/2016 6:51 [facility] MCH 30.3 27.6 - 33.0 pg 04/27/2016 6:51 [facility] MCHC 34.9 32.8 - 36.4 gm/dl 04/27/2016 6:51 [facility] RDW-CV 12.2 11.8 - 14.1 % 04/27/2016 6:51 [facility] RDW-SD 39.0 36.5 - 45.9 fl 04/27/2016 6:51 [facility] PLT 321 141 - 377 K/cmm 04/27/2016 6:51 [facility] MPV 8.3(L) 9.5 - 12.7 fl 04/27/2016 6:51 [facility] % Neutrophils 48.0 % 04/27/2016 6:51 [facility] % Lymphocytes 35.2 % 04/27/2016 6:51 [facility] % Monocytes 13.3 % 04/27/2016 6:51 [facility] % Eosinophils 2.5 % 04/27/2016 6:51 [facility] % Basophils 0.5 % 04/27/2016 6:51 [facility] % Immature Grans 0.5 % 04/27/2016 6:51 [facility] ABS Neutrophils 1.95(L) 2.20 - 8.85 K/cmm 04/27/2016 6:51 [facility] ABS Lymphs 1.43 1.09 - 3.30 K/cmm 04/27/2016 6:51 [facility] ABS Monocytes 0.54 0.1 - 0.8 K/cmm 04/27/2016 6:51 [facility] ABS Eosinophils 0.10 0.03 - 0.61 K/cmm 04/27/2016 6:51 [facility] ABS Basophils 0.02 0.01 - 0.11 K/cmm 04/27/2016 6:51 [facility] ABS Immature Grans 0.02 0 - 0.06 K/cmm 04/27/2016 6:51 [facility] Type of Diff: Automated 04/27/2016 6:51 [facility] Blood specimen (specimen) BLOOD SPECIMEN / Unknown 04/27/2016 6:24 EST 04/27/2016 6:35 EST Michael Skinner MD PACKAGES & DNA PROBE ORD ERABLES Final Result Performing Organization Address [facility] Co de Phone Number [facility] [address] [place] [address] * (ABNORMAL) PROTIME (04/27/2016 6:24 EST) Pro Time 27.9(H) 10.3 - 13.1 secs 04/27/2016 7:05 EST [facility] Comment: New prothrombin t john range effective 02/26/16 I.N.R. 2.3(H) 0.9 - 1.1 Ratio 04/27/2016 7:05 EST [facility] Comment: Moderate Intensity Coumadin INR = 2.0-3.0 Adjustments in anticoagulant therapy dose should be based upon the INR and NOT the Pro Time. Blood specimen (specimen) BLOOD SPECIMEN / Unknown 04/27/2016 6:24 EST 04/27/2016 6:35 EST Result [facility] Michael Skinner MD HEMATOLOGY & PF4 ORDERAB LES Final Result Performing Organization Address [facility] Co de Phone Number [facility] [address] [place] [address] * BUN (04/26/2016 5:58 EST) BUN 26 10 - 26 mg/dl 04/26/2016 6:56 EST [facility] Blood specimen (specimen) BLOOD SPECIMEN / Unknown 04/26/2016 5:58 EST 04/26/2016 6:30 EST Michael Skinner MD CHEMISTRY & BLOOD GAS OR DERABLES Final Result Performing Organization Address [facility] Co de Phone Number [facility] [address] [place] [address] * (ABNORMAL) CREATININE (04/26/2016 5:58 EST) Creatinine 1.50(H) 0.66 - 1.25 mg/dl 04/26/2016 6:56 [facility] GFR, Calculated 50(L) >60 ml/min/1.7 3m2 04/26/2016 6:56 [facility] Comment: eGFR calculated using CKD-EPI equation for non Americans. Multiply eGFR by 1.16 for Americans. Blood specimen (specimen) BLOOD SPECIMEN / Unknown 04/26/2016 5:58 EST 04/26/2016 6:30 EST Michael Skinner MD CHEMISTRY & BLOOD GAS OR DERABLES Final Result Performing Organization Address [facility] Co de Phone Number [facility] [address] [place] [address] * (ABNORMAL) ELECTROLYTES (04/26/2016 5:58 EST) Sodium 132(L) 136 - 145 mEq/L 04/26/2016 6:56 [facility] Potassium 4.6 3.5 - 5.0 mEq/L 04/26/2016 6:56 [facility] Chloride 96 96 - 110 mEq/L 04/26/2016 6:56 [facility] CO2 26 22 - 32 mEq/L 04/26/2016 6:56 [facility] Comment:Note new reference r concetta 03/18/16 Blood specimen (specimen) BLOOD SPECIMEN / Unknown 04/26/2016 5:58 EST 04/26/2016 6:30 EST Michael Skinner MD CHEMISTRY & BLOOD GAS OR DERABLES Final Result Performing Organization Address City/[facility]/ZIP Co de Phone Number [facility] [address] [place] [address] * GLUCOSE, SERUM (04/26/2016 5:58 EST) Glucose, Serum 93 70 - 100 mg/dl 04/26/2016 6:56 [facility] Blood specimen (specimen) BLOOD SPECIMEN / Unknown 04/26/2016 5:58 EST 04/26/2016 6:30 EST us Michael Skinner MD CHEMISTRY & BLOOD GAS OR DERABLES Final Result [facility] [address] [place] [address] * (ABNORMAL) HEMAGRAM AND DIFFERENTIAL (04/26/2016 5:58 EST) WBC 5.88 4.0 - 10.4 K/cmm 04/26/2016 6:52 [facility] RBC 3.91(L) 4.36 - 5.78 M/cmm 04/26/2016 6:52 [facility] Hemoglobin 12.0(L) 13.8 - 17.3 gm/dl 04/26/2016 6:52 [facility] HCT 33.9(L) 39.5 - 50.2 % 04/26/2016 6:52 [facility] MCV 87 81 - 95 fl 04/26/2016 6:52 [facility] MCH 30.7 27.6 - 33.0 pg 04/26/2016 6:52 [facility] MCHC 35.4 32.8 - 36.4 gm/dl 04/26/2016 6:52 [facility] RDW-CV 12.5 11.8 - 14.1 % 04/26/2016 6:52 [facility] RDW-SD 39.9 36.5 - 45.9 fl 04/26/2016 6:52 [facility] PLT 373 141 - 377 K/cmm 04/26/2016 6:52 [facility] MPV 8.5(L) 9.5 - 12.7 fl 04/26/2016 6:52 [facility] % Neutrophils 56.7 % 04/26/2016 6:52 [facility] % Lymphocytes 29.3 % 04/26/2016 6:52 [facility] % Monocytes 11.6 % 04/26/2016 6:52 [facility] % Eosinophils 1.4 % 04/26/2016 6:52 [facility] % Basophils 0.5 % 04/26/2016 6:52 [facility] % Immature Grans 0.5 % 04/26/2016 6:52 [facility] ABS Neutrophils 3.34 2.20 - 8.85 K/cmm 04/26/2016 6:52 [facility] ABS Lymphs 1.72 1.09 - 3.30 K/cmm 04/26/2016 6:52 [facility] ABS Monocytes 0.68 0.1 - 0.8 K/cmm 04/26/2016 6:52 [facility] ABS Eosinophils 0.08 0.03 - 0.61 K/cmm 04/26/2016 6:52 [facility] ABS Basophils 0.03 0.01 - 0.11 K/cmm 04/26/2016 6:52 [facility] ABS Immature Grans 0.03 0 - 0.06 K/cmm 04/26/2016 6:52 [facility] Type of Diff: Automated 04/26/2016 6:52 [facility] Blood specimen (specimen) BLOOD SPECIMEN / Unknown 04/26/2016 5:58 EST 04/26/2016 6:30 EST us Michael Skinner MD PACKAGES & DNA PROBE ORD ERABLES Final Result [facility] [address] [place] [address] * (ABNORMAL) PROTIME (04/26/2016 5:58 EST) Pro Time 33.3(H) 10.3 - 13.1 secs 04/26/2016 6:48 [facility] Comment: New prothrombin t john range effective 02/26/16 I.N.R. 2.7(H) 0.9 - 1.1 Ratio 04/26/2016 6:48 [facility] Comment: Moderate Intensity Coumadin INR = 2.0-3.0 Adjustments in anticoagulant therapy dose should be based upon the INR and NOT the Pro Time. Blood specimen (specimen) BLOOD SPECIMEN / Unknown 04/26/2016 5:58 EST 04/26/2016 6:30 EST Michael Skinner MD HEMATOLOGY & PF4 ORDERAB LES Final Result Performing Organization Address [facility] de Phone Number [facility] [address] [place] [address] * HEMOGLOBIN A1C (04/25/2016 23:35 EST) Hemoglobin A1C 6.0 % 04/27/2016 10:50 EST [facility] Comment: Reference Range: <5.7% Normal 5.7-6.4% Increased risk for diabetes =>6.5% Diagnostic for diabetes (if confirmed) The A1c goal for non adults in general is <7%. The A1c goal for selected patients may be significantly lower than 7% if this can be achieved without significant hypoglycemia or other adverse effects of treatment. Est Avg Glucose 126 mg/dl 6 10:50 EST [facility] Comment: eAG represents the A1c result expressed as average glucose in mg/dl. Blood specimen (specimen) BLOOD SPECIMEN / Unknown 04/25/2016 23:35 EST 04/25/2016 23:41 EST Michael Skinner MD CHEMISTRY & BLOOD GAS OR DERABLES Final Result Performing Organization Address [facility] de Phone Number [facility] [address] [place] [address] * TYPE AND SCREEN (04/25/2016 23:31 EST) ABO O [facility] Rh Factor Positive [facility] Antibody Screen Negative [facility] Specimen Expires: 04/28/2016 @ 23:59 [facility] Blood specimen (specimen) 04/25/2016 23:31 EST Michael Skinner MD BLOOD BANK TESTS Final R esult [facility] [address] [place] [address] * BACTERIAL CULTURE, BLOOD (04/25/2016 19:56 EST) Result No growth 04/30/2016 6:55 EST [facility] Blood specimen (specimen) BLOOD SPECIMEN / Unknown 04/25/2016 19:56 EST 04/25/2016 20:19 EST Comment:Left~FOREARM~Total v olume of blood collected:~20 ml Gilmer Kelsey MD MICROBIOLOGY - GENERAL ORDERABLE S Final Result Performing Organization Address [facility] Co de Phone Number [facility] [address] [place] [address] * BACTERIAL CULTURE, BLOOD (04/25/2016 19:55 EST) Result No growth 04/30/2016 6:55 EST [facility] Blood specimen (specimen) BLOOD SPECIMEN / Unknown 04/25/2016 19:55 EST 04/25/2016 20:20 EST Comment:Right~Hand~Total vol ume of blood collected:~12 ml us Gilmer Kelsey MD MICROBIOLOGY - GENERAL ORDERABLE S Final Result Performing Organization Address [facility] de Phone Number [facility] [address] [place] [address] * ANAEROBE CULTURE/SMEAR(INC. AEROBES), FLUID (04/25/2016 16:59 EST) Gram Smear Result Mod Polys 04/25/2016 18:22 EST [facility] Gram Smear Result No bacteria seen 04/25/2016 18:22 EST [facility] Result No growth 04/27/2016 11:15 EST [facility] Specimen of unknown material (specimen) SYNOVIAL FLUID / Unknown 04/25/2016 16:59 EST 04/25/2016 17:15 EST Comment:Knee~2ML~Specimen villagomez bmitted in a syringe Gilmer Kelsey MD MICROBIOLOGY - GENERAL ORDERABLE S Final Result Performing Organization Address [facility]/ZIP Co de Phone Number [facility] [address] [place] [address] * FLUID DIFFERENTIAL (04/25/2016 15:30 EST) Neutrophils, Synovial Fluid 92 % 04/25/2016 18:54 EST [facility] Lymphocytes, Synovial Fluid 2 % 04/25/2016 18:54 EST [facility] Walton/Macro, Synovial Fluid 6 % 04/25/2016 18:54 [facility] SYNOVIAL FLUID / Unknown 04/25/2016 15:30 EST 04/25/2016 17:04 EST Gilmer Kelsey MD GEN LAB UNIT COLLECT ORDERABLES Final Result Performing Organization Address [facility] de Phone Number [facility] [address] [place] [address] * SYNOVIAL CELL COUNT (04/25/2016 15:30 EST) RBC, Synovial Fluid 497,000 /cmm 04/25/2016 17:49 [facility] Nucleated Cells 7,573 /cmm 04/25/2016 17:49 [facility] Synovial Fluid Comment Markedly bloody 04/25/2016 17:49 [facility] Comment: Results may not be reliable Few cell clumps present in fluid Body fluid specimen (specimen) SYNOVIAL FLUID / Unknown 04/25/2016 15:30 EST 04/25/2016 17:04 EST Gilmer Kelsey MD GEN LAB UNIT COLLECT ORDERABLES Final Result Performing Organization Address [facility] Co de Phone Number [facility] [address] [place] [address] * CRYSTAL ANALYSIS FLUID ONLY (04/25/2016 15:30 EST) Crystal, Fluid 04/26/2016 15:27 [facility] Comment: Preliminary crystal findings. These findings are to be reviewed by a pathologist No crystals seen on scan Crystal analysis has been reviewed by a pathologist and report is now final Body fluid specimen (specimen) SYNOVIAL FLUID / Unknown 04/25/2016 15:30 EST 04/25/2016 17:03 EST Gilmer Kelsey MD GEN LAB UNIT COLLECT ORDERABLES Final Result [facility] [address] [place] [id number] * KNEE 4 OR MORE VIEWS (04/25/2016 15:01 EST) Anatomical Region Laterality Modality Other 04/25/2016 15:0 1 EST 04/25/2016 15:36 EST Narrative 04/25/2016 15:36 EST KNEE 4 OR MORE VIEWS ??04/25/2016 3:01 PM Clinical History/Comments: Right knee swelling status post joint replacement Comparison: None. Findings: AP, lateral, dual oblique views of the right knee (4 images). Patient has undergone total right knee arthroplasty on March 31 as per the electronic medical record. There is no periprosthetic fracture or apparent hardware loosening/failure. Moderate suprapatellar joint effusion is seen. No periosteal reaction. With exception of soft tissue swelling, best seen on lateral view, there are no significant soft tissue abnormalities. IMPRESSION: 1. No periprosthetic fracture or hardware failure. 2. Suprapatellar joint effusion. I have personally reviewed the images and the above interpretation and agree with the findings. Procedure Note Duc Peacock MD - 04/25/2016 KNEE 4 OR MORE VIEWS 04/25/2016 3:01 PM Clinical History/Comments: Right knee swelling status post joint replacement Comparison: None. Findings: AP, lateral, dual oblique views of the right knee (4 images). Patient has undergone total right knee arthroplasty on March 31 as per the electronic medical record. There is no periprosthetic fracture or apparent hardware loosening/failure. Moderate suprapatellar joint effusion is seen. No periosteal reaction. With exception of soft tissue swelling, best seen on lateral view, there are no significant soft tissue abnormalities. IMPRESSION: 1. No periprosthetic fracture or hardware failure. 2. Suprapatellar joint effusion. I have personally reviewed the images and the above interpretation and agree with the findings. Ray Lehman PA-C IMG DIAGNOSTIC IMAGING ORDERA BLES Final Result * BACTERIAL CULTURE, BLOOD (04/25/2016 14:23 EST) Result No growth 04/30/2016 6:55 EST [facility] Blood specimen (specimen) BLOOD SPECIMEN / Unknown 04/25/2016 14:23 EST 04/25/2016 16:15 EST Comment:Right~FOREARM~Total volume of blood collected:~20 ml Ray Lehman PA-C MICROBIOLOGY - GENERAL ORDERA BLES Final Result Performing Organization Address [facility] de Phone Number [facility] [address] [place] [address] * BACTERIAL CULTURE, BLOOD (04/25/2016 14:22 EST) Result No growth 04/30/2016 6:55 EST [facility] Blood specimen (specimen) BLOOD SPECIMEN / Unknown 04/25/2016 14:22 EST 04/25/2016 16:14 EST Comment:Right~Hand~Total vol ume of blood collected:~17 ml Ray Lehman PA-C MICROBIOLOGY - GENERAL ORDERA BLES Final Result Performing Organization Address [facility] Co de Phone Number [facility] [address] [place] [address] * (ABNORMAL) C REACTIVE PROTEIN (04/25/2016 14:22 EST) C Reactive Protein 47.8(H) <10.0 mg/L 04/25/2016 15:24 EST [facility] Blood specimen (specimen) BLOOD SPECIMEN / Unknown 04/25/2016 14:22 EST 04/25/2016 15:06 EST Result [facility] Chayo Doherty PA-C CHEMISTRY & BLOOD GA S ORDERABLES Final Result Performing Organization Address City/[facility]/ZIP Co de Phone Number [facility] [address] [place] [address] * (ABNORMAL) SED. RATE:AFSHINERGREN (04/25/2016 14:22 EST) Sed. Rate Westergren 74(H) 0 - 20 mm/hr 04/25/2016 15:17 EST [facility] Blood specimen (specimen) BLOOD SPECIMEN / Unknown 04/25/2016 14:22 EST 04/25/2016 15:06 EST Chayo Doherty PA-C HEMATOLOGY & PF4 ORD ERABLES Final Result Performing Organization Address [facility]/ZIP Co de Phone Number [facility] [address] [place] [address] * (ABNORMAL) GLUCOSE, SERUM (04/25/2016 14:22 EST) Pathologist [facility] Glucose, Serum 101(H) 70 - 100 mg/dl 04/25/2016 15:24 EST [facility] Blood specimen (specimen) BLOOD SPECIMEN / Unknown 04/25/2016 14:22 EST 04/25/2016 15:06 EST us Chayo Doherty PA-C CHEMISTRY & BLOOD GA S ORDERABLES Final Result Performing Organization Address City/[facility]/ZIP Co de Phone Number [facility] [address] [place] [address] * (ABNORMAL) ELECTROLYTES (04/25/2016 14:22 EST) Sodium 136 136 - 145 mEq/L 04/25/2016 15:24 EST [facility] Potassium 4.5 3.5 - 5.0 mEq/L 04/25/2016 15:24 [facility] Chloride 95(L) 96 - 110 mEq/L 04/25/2016 15:24 EST [facility] CO2 26 22 - 32 mEq/L 04/25/2016 15:24 EST [facility] Comment:Note new reference r concetta 03/18/16 Blood specimen (specimen) BLOOD SPECIMEN / Unknown 04/25/2016 14:22 EST 04/25/2016 15:06 EST Chayo Doherty PA-C CHEMISTRY & BLOOD GA S ORDERABLES Final Result Performing Organization Address City/[facility]/ZIP Co de Phone Number [facility] [address] [place] [address] * (ABNORMAL) CREATININE (04/25/2016 14:22 EST) Creatinine 1.72(H) 0.66 - 1.25 mg/dl 04/25/2016 15:24 EST [facility] GFR, Calculated 43(L) >60 ml/min/1.7 3m2 04/25/2016 15:24 EST [facility] Comment: eGFR calculated using CKD-EPI equation for non Americans. Multiply eGFR by 1.16 for Americans. Blood specimen (specimen) BLOOD SPECIMEN / Unknown 04/25/2016 14:22 EST 04/25/2016 15:06 EST Chayo Doherty PA-C CHEMISTRY & BLOOD GA S ORDERABLES Final Result Performing Organization Address City/[facility]/ZIP Co de Phone Number [facility] [address] [place] [address] * (ABNORMAL) BUN (04/25/2016 14:22 EST) BUN 30(H) 10 - 26 mg/dl 04/25/2016 15:24 EST [facility] Blood specimen (specimen) BLOOD SPECIMEN / Unknown 04/25/2016 14:22 EST 04/25/2016 15:06 EST Chayo Doherty PA-C CHEMISTRY & BLOOD GA S ORDERABLES Final Result [facility] [address] [place] [address] * (ABNORMAL) HEMAGRAM AND DIFFERENTIAL (04/25/2016 14:22 EST) WBC 6.75 4.0 - 10.4 K/cmm 04/25/2016 15:13 [facility] RBC 4.45 4.36 - 5.78 M/cmm 04/25/2016 15:13 [facility] Hemoglobin 13.6(L) 13.8 - 17.3 gm/dl 04/25/2016 15:13 [facility] HCT 38.7(L) 39.5 - 50.2 % 04/25/2016 15:13 [facility] MCV 87 81 - 95 fl 04/25/2016 15:13 [facility] MCH 30.6 27.6 - 33.0 pg 04/25/2016 15:13 [facility] MCHC 35.1 32.8 - 36.4 gm/dl 04/25/2016 15:13 [facility] RDW-CV 12.5 11.8 - 14.1 % 04/25/2016 15:13 [facility] RDW-SD 39.6 36.5 - 45.9 fl 04/25/2016 15:13 [facility] PLT 398(H) 141 - 377 K/cmm 04/25/2016 15:13 [facility] MPV 8.4(L) 9.5 - 12.7 fl 04/25/2016 15:13 [facility] % Neutrophils 66.5 % 04/25/2016 15:13 [facility] % Lymphocytes 20.7 % 04/25/2016 15:13 [facility] % Monocytes 10.8 % 04/25/2016 15:13 [facility] % Eosinophils 0.6 % 04/25/2016 15:13 [facility] % Basophils 0.7 % 04/25/2016 15:13 [facility] % Immature Grans 0.7 % 04/25/2016 15:13 [facility] ABS Neutrophils 4.48 2.20 - 8.85 K/cmm 04/25/2016 15:13 [facility] ABS Lymphs 1.40 1.09 - 3.30 K/cmm 04/25/2016 15:13 [facility] ABS Monocytes 0.73 0.1 - 0.8 K/cmm 04/25/2016 15:13 [facility] ABS Eosinophils 0.04 0.03 - 0.61 K/cmm 04/25/2016 15:13 [facility] ABS Basophils 0.05 0.01 - 0.11 K/cm 04/25/2016 15:13 [facility] ABS Immature Grans 0.05 0 - 0.06 K[facility] 04/25/2016 15:13 [facility] Type of Diff: Automated 04/25/2016 15:13 [facility] Blood specimen (specimen) BLOOD SPECIMEN / Unknown 04/25/2016 14:22 EST 04/25/2016 15:06 EST Chayo Doherty PA-C PACKAGES & DNA PROBE ORDERABLES Final Result Performing Organization Address [facility] de Phone Number [facility] [address] [place] [address] * (ABNORMAL) PROTIME (04/25/2016 14:22 EST) Pro Time 32.3(H) 10.3 - 13.1 secs 04/25/2016 15:20 [facility] Comment: New prothrombin t john range effective 02/26/16 I.N.R. 2.7(H) 0.9 - 1.1 Ratio 04/25/2016 15:20 [facility] Comment: Moderate Intensity Coumadin INR = 2.0-3.0 Adjustments in anticoagulant therapy dose should be based upon the INR and NOT the Pro Time. Blood specimen (specimen) BLOOD SPECIMEN / Unknown 04/25/2016 14:22 EST 04/25/2016 15:06 EST Chayo Doherty PA-C HEMATOLOGY & PF4 ORD ERABLES Final Result Performing Organization Address City/[facility]/ZIP Co de Phone Number [facility] [address] [place] [address] documented in this encounter Visit Diagnoses Diagnosis Hemarthrosis following procedure, initial encounter- Primary Infected prosthetic knee joint, initial encounter ([facility]) Chronic kidney disease, stage III (moderate) ([facility]) Chronic kidney disease, Stage III (moderate) Hemarthrosis following procedure Hemorrhage complicating a procedure Essential hypertension Unspecified essential hypertension documented in this encounter Administered Medications Inactive Administered Medications - up to 3 most recent administrations Medication Order MAR Action Action Date Dose Rate Site acetaminophen (TYLENOL) suppository 975 mg 975 mg, rectal, EVERY 6 HOURS, First dose on 04/26/16 at 0000, Until Discontinued, Routine acetaminophen (TYLENOL) tablet 1,000 mg 1,000 mg, oral, EVERY 6 HOURS, First dose on 04/26/16 at 0000, Until Discontinued, Routine Given 04/28/2016 6:42 EST 1,000 mg Given 04/28/2016 1:22 EST 1,000 mg Given 04/27/2016 5:20 EST 1,000 mg ascorbic acid (vitamin C) (VITAMIN C) tablet 500 mg 500 mg, oral, DAILY, First dose on 04/26/16 at 0900, Until Discontinued, Routine Given 04/28/2016 9:41 EST 500 mg Given 04/26/2016 8:32 EST 500 mg cholecalciferol (Vitamin D3) tablet 2,000 Units 2,000 Units, oral, DAILY, First dose on 04/26/16 at 0900, Until Discontinued, Routine Given 04/28/2016 9:42 EST 2,000 Units Given 04/26/2016 8:33 EST 2,000 Units docusate sodium (COLACE) capsule 200 mg 200 mg, oral, 2 TIMES DAILY, First dose on Thu04/25/16 at 2330, Until Discontinued, Routine Given 04/27/2016 20:[address] 200 mg Given 04/26/2016 8:33 EST 200 mg fentaNYL citrate (PF) 50 mcg/mL injection 50 mcg 50 mcg, intravenous, NOW X1, 1 dose, On Thu04/25/16 at 1630, STAT Given 04/25/2016 16:48 EST 50 mcg hydroCHLOROthiazide (HYDRODIURIL) tablet 25 mg 25 mg, oral, DAILY, First dose on Thu04/26/16 at 0900, Until Discontinued, Routine Given 04/28/2016 9:41 EST 25 mg Given 04/27/2016 16:46 EST 25 mg Given 04/26/2016 8:32 EST 25 mg HYDROcodone-acetaminophen (NORCO) 5-325 mg tablet 2 Tab 2 Tablet, oral, NOW X1, 1 dose, On Thu04/25/16 at 1430, STAT Given 04/25/2016 15:44 EST 2 Tablets methocarbamol (ROBAXIN) tablet 500-1,000 mg 500-1,000 mg, oral, EVERY 6 HOURS PRN, Starting on Thu04/25/16 at 2308, Until Thu04/28/16 at 1434, muscle spasms, Routine Given 04/28/2016 9:56 EST 1,000 mg Given 04/28/2016 1:22 EST 1,000 mg Given 04/27/2016 16:47 EST 1,000 mg midazolam (PF) (VERSED) 1 mg/mL injection 1 mg 1 mg, intravenous, NOW X1, 1 dose, On Thu04/25/16 at 1630, STAT Given 04/25/2016 16:48 EST 1 mg Multivitamins with Minerals tablet 1 Tab 1 Tablet, oral, DAILY, First dose on Thu04/26/16 at 0900, Until Discontinued, Routine Given 04/28/2016 9:4 0 EST 1 Tablet Given 04/26/2016 8:32 EST 1 Tablet ondansetron (PF) (ZOFRAN) injection 2-4 mg 2-4 mg, intravenous, EVERY 6 HOURS PRN, Starting on Thu04/25/16 at 2308, Until Thu04/28/16 at 1434, Nausea, Routine ondansetron (ZOFRAN-ODT) disintegrating tablet 4 mg 4 mg, oral, EVERY 6 HOURS PRN, Starting on Thu04/25/16 at 2308, Until Thu04/28/16 at 1434, Nausea, Routine oxyCODONE (ROXICODONE) immediate release tablet 5-20 mg 5-20 mg, oral, EVERY 3 HOURS PRN, Starting on Thu04/25/16 at 2308, Until Thu04/28/16 at 1434, Pain, Routine Given 04/27/2016 5:20 EST 20 mg Given 04/26/2016 23:13 EST 20 mg Given 04/26/2016 18:52 EST 10 mg senna (SENOKOT) tablet 2 Tab 2 Tablet, oral, 2 TIMES DAILY, First dose on Thu04/25/16 at 2330, Until Discontinued, Routine Given 04/28/2016 9:40 EST 1 Tablet Given 04/27/2016 20:10 EST 2 Tablets Given 04/26/2016 8:32 EST 2 Tablets sodium chloride 0.9 % (NS) infusion at 100 mL/hr, intravenous, CONTINUOUS, Starting on Thu04/25/16 at 2330, Until 04/28/16 at 1434, Routine New Bag 04/27/2016 5:22 EST 100 mL/h r New Bag 04/26/2016 20:43 EST 100 mL/hr New Bag 04/26/2016 10:27 EST 100 mL/hr traMADol (ULTRAM) tablet 50 mg 50 mg, oral, EVERY 6 HOURS PRN, Starting on Thu04/25/16 at 2308, Until 04/28/16 at 1434, Pain, Routine Given 04/28/2016 9:56 EST 50 mg Given 04/28/2016 1:22 EST 50 mg Given 04/27/2016 20:10 EST 50 mg vancomycin (VANCOCIN) 1,250 mg in dextrose 5% (D5W) 250 mL IVPB 1,250 mg (rounded from 1,137 mg = 15 mg/kg ? 75.8 kg), intravenous, Administer over 75 Minutes, EVERY 24 HOURS, 3 doses, First dose on Thu04/25/16 at 2330, Last dose on Thu04/27/16 at 2330, Routine Given 04/26/2016 23:08 EST 1,250 mg Given 04/26/2016 0:38 EST 1,250 mg zinc sulfate (ZINCATE) capsule 220 mg 220 mg, oral, DAILY, First dose on 04/26/16 at 0900, Until Discontinued, Routine Given 04/28/2016 9:41 EST 220 mg Given 04/26/2016 8:33 EST 220 mg documented in this encounter Discontinued Medications Medication Sig Discontinue Reason Start Date End Da te cephALEXin (KEFLEX) 500 mg capsule Take 500 mg by mouth every 6 hours. 04/28/2016 documented as of this encounter Historical Medications * This list may reflect changes made after this encounter. HYDROcodone-aceta minophen (NORCO) 7.5-325 mg per tablet Take 1 Tab by mouth every 6 hours. 06/27/2020 cephALEXin (KEFLEX) 500 mg capsule Take 500 mg by mouth every 6 hours. 04/28/2016 sulfamethoxazole- trimethoprim (BACTRIM/C0-TRIMO XAZOLE DS) 800-160 mg per tablet Take 1 Tab by mouth every 12 hours. 06/27/2020 added in this encounter Active and Recently Administered Medications Times are shown in EST. Scheduled Medication Order 04/26/2016 04/27/2016 04/28/2016 acetaminophen (TYLENOL) suppository 975 mg(Linked Group 1) 975 mg, rectal, EVERY 6 HOURS, First dose on 04/26/16 at 0000, Until Discontinued, Routine 0040 (See Alternative - Provider: Nimo Loera RN)0635 (See Alternative - Provider: Nimo Loera RN)1220 (See Alternative - Provider: Melonie Bravo RN)1846 (See Alternative - Provider: Melonie Bravo RN)2309 (See Alternative - Provider: Madelaine Ha RN) 0520 (See Alternative - Provider: Madelaine Ha RN)1530 (See Alternative - Provider: Teressa Ng RN)1800 (See Alternative - Provider: Teressa Ng RN) 0122 (See Alternative - Provider: Madelaine Ha RN)0642 (See Alternative - Provider: Madelaine Ha RN)1200 (Canceled Entry - Provider: Batch Job User Admin - Comment: Automatically canceled at discontinue of medication order) acetaminophen (TYLENOL) tablet 1,000 mg(Linked Group 1) 1,000 mg, oral, EVERY 6 HOURS, First dose on 04/26/16 at 0000, Until Discontinued, Routine 0040 (Given - Provider: Nimo Loera RN)0635 (Given - Provider: Nimo Loera RN)1220 (Given - Provider: Melonie Bravo RN)1846 (Given - Provider: Melonie Bravo RN)2309 (Given - Provider: Madelaine Ha RN) 0520 (Given - Provider: Madelaine Ha RN)1530 (Not Given - Provider: Teressa Ng RN - Reason: Patient/family refused)1800 (Canceled Entry - Provider: Teressa Ng RN) 0122 (Given - Provider: Madelaine Ha RN)0642 (Given - Provider: Madelaine Ha RN)1200 (Canceled Entry - Provider: Batch Job User Admin - Comment: Automatically canceled at discontinue of medication order) ascorbic acid (vitamin C) (VITAMIN C) tablet 500 mg 500 mg, oral, DAILY, First dose on 04/26/16 at 0900, Until Discontinued, Routine 0832 (Given - Provider: Melonie Bravo RN) 0944 (Not Given - Provider: Teressa Ng RN - Reason: NPO) 0941 (Given - Provider: Eveline Thomas RN) cholecalciferol (Vitamin D3) tablet 2,000 Units 2,000 Units, oral, DAILY, First dose on 04/26/16 at 0900, Until Discontinued, Routine 0833 (Given - Provider: Melonie Bravo RN) 0944 (Not Given - Provider: Teressa Ng RN - Reason: NPO) 0942 (Given - Provider: Eveline Thomas RN) docusate sodium (COLACE) capsule 200 mg 200 mg, oral, 2 TIMES DAILY, First dose on Thu04/25/16 at 2330, Until Discontinued, Routine 0833 (Given - Provider: Melonie Bravo RN)2044 (Not Given - Provider: Madelaine Ha RN - Reason: Order parameters not met) 0944 (Not Given - Provider: Teressa Ng RN - Reason: NPO)2009 (Given - Provider: Madelaine Ha RN) 0942 (Not Given - Provider: Eveline Thomas RN - Reason: Patient/family refused) hydroCHLOROthiazide (HYDRODIURIL) tablet 25 mg 25 mg, oral, DAILY, First dose on 04/26/16 at 0900, Until Discontinued, Routine 0832 (Given - Provider: Melonie Bravo RN - Comment: 108/62) 0945 (Not Given - Provider: Teressa Ng RN - Reason: NPO)1646 (Given - Provider: Teressa Ng RN) 0941 (Given - Provider: Eveline Thomas RN) Multivitamins with Minerals tablet 1 Tab 1 Tablet, oral, DAILY, First dose on Thu04/26/16 at 0900, Until Discontinued, Routine 0832 (Given - Provider: Melonie Bravo RN) 0947 (Not Given - Provider: Teressa Ng RN - Reason: NPO) 0940 (Given - Provider: Eveline Thomas, ARON) PEG 3350-Electrolytes (MIRALAX) packet 17 g 17 g, oral, DAILY, First dose on Thu04/26/16 at 0900, Until Discontinued, Routine 0920 (Hold - Provider: Melonie Bravo RN - Reason: Patient/family refused) 0948 (Not Given - Provider: Teressa Ng RN - Reason: NPO) 0940 (Not Given - Provider: Eveline Thomas RN - Reason: Patient/family refused) senna (SENOKOT) tablet 2 Tab 2 Tablet, oral, 2 TIMES DAILY, First dose on Thu04/25/16 at 2330, Until Discontinued, Routine 0832 (Given - Provider: Melonie Bravo RN)2045 (Not Given - Provider: Madelaine Ha RN - Reason: Order parameters not met) 0948 (Not Given - Provider: Teressa Ng RN - Reason: NPO)2009 (Given - Provider: Madelaine Ha, ARON) 0940 (Given - Provider: Eveline Thomas RN) vancomycin (VANCOCIN) 1,250 mg in dextrose 5% (D5W) 250 mL IVPB (CANCELED) 1,250 mg (rounded from 1,137 mg = 15 mg/kg ? 75.8 kg), intravenous, Administer over 75 Minutes, EVERY 24 HOURS, 3 doses, First dose on Thu04/25/16 at 2330, Last dose on Thu04/27/16 at 2330, Routine 0038 (Given - Provider: Nimo Loera RN)2308 (Given - Provider: Madelaine Ha, ARON) zinc sulfate (ZINCATE) capsule 220 mg 220 mg, oral, DAILY, First dose on Thu04/26/16 at 0900, Until Discontinued, Routine 0833 (Given - Provider: Melonie Bravo RN) 0949 (Not Given - Provider: Teressa Ng RN - Reason: NPO) 0941 (Given - Provider: Eveline Thomas, RN) Continuous Medication Order 04/26/2016 04/27/2016 04/28/2016 sodium chloride 0.9 % (NS) infusion at 100 mL/hr, intravenous, CONTINUOUS, Starting on Thu04/25/16 at 2330, Until Thu04/28/16 at 1434, Routine 0039 (New Bag - Provider: Nimo Loera RN)0154 (Rate Documented - Provider: Nimo Loera RN)0531 (Rate Documented - Provider: Nimo Loera RN)1027 (New Bag - Provider: Melonie Bravo, ARON)2043 (New Bag - Provider: Madelaine Ha, RN) 0522 (New Bag - Provider: Madelaine Ha, ARON) PRN Medication Order 04/26/2016 04/27/2016 04/28/2016 bisacodyl (DULCOLAX) suppository 10 mg 10 mg, rectal, DAILY PRN, Starting on Thu04/25/16 at 2308, Until Thu04/28/16 at 1434, Constipation, Routine calcium carbonate (TUMS) 200 mg calcium (500 mg) per chewable tablet tablet,chewable 1-2 Tab 1-2 Tablet, oral, EVERY 2 HOURS PRN, Starting on Thu04/25/16 at 2308, Until Thu04/28/16 at 1434, Heartburn, epigastric stress, Routine methocarbamol (ROBAXIN) tablet 500-1,000 mg 500-1,000 mg, oral, EVERY 6 HOURS PRN, Starting on Thu04/25/16 at 2308, Until Thu04/28/16 at 1434, muscle spasms, Routine 0040 (Given - Provider: Nimo Loera RN)2049 (Given - Provider: Madelaine Ha, ARON) 1647 (Given - Provider: Teressa Ng, ARON) 0122 (Given - Provider: Madelaine Ha, ARON)0956 (Given - Provider: Eveline Thomas, ARON) ondansetron (PF) (ZOFRAN) injection 2-4 mg(Linked Group 2) 2-4 mg, intravenous, EVERY 6 HOURS PRN, Starting on Thu04/25/16 at 2308, Until Thu04/28/16 at 1434, Nausea, Routine ondansetron (ZOFRAN-ODT) disintegrating tablet 4 mg(Linked Group 2) 4 mg, oral, EVERY 6 HOURS PRN, Starting on Thu04/25/16 at 2308, Until Thu04/28/16 at 1434, Nausea, Routine oxyCODONE (ROXICODONE) immediate release tablet 5-20 mg 5-20 mg, oral, EVERY 3 HOURS PRN, Starting on Thu04/25/16 at 2308, Until Thu04/28/16 at 1434, Pain, Routine 0040 (Given - Provider: Nimo Loera RN)0635 (Given - Provider: Nimo Loera, ARON)1852 (Given - Provider: Melonie Bravo RN - Comment: right knee)2313 (Given - Provider: Madelaine Ha, ARON) 0520 (Given - Provider: Madelaine Ha RN) traMADol (ULTRAM) tablet 50 mg 50 mg, oral, EVERY 6 HOURS PRN, Starting on Thu04/25/16 at 2308, Until Thu04/28/16 at 1434, Pain, Routine 2049 (Given - Provider: Madelaine Ha RN) 0519 (Given - Provider: Madelaine Ha RN)1238 (Given - Provider: Teressa Ng RN)2010 (Given - Provider: Madelaine Ha, ARON) 0122 (Given - Provider: Madelaine Ha, ARON)0956 (Given - Provider: Eveline Thomas RN) Linked Groups Order Group 1: acetaminophen (TYLENOL) tablet 1,000 mgJump to med 1,000 mg, oral, EVERY 6 HOURS, First dose on 04/26/16 at 0000, Until Discontinued, Routine Or acetaminophen (TYLENOL) suppository 975 mgJump to med 975 mg, rectal, EVERY 6 HOURS, First dose on Thu04/26/16 at 0000, Until Discontinued, Routine Group 2: ondansetron (ZOFRAN-ODT) disintegrating tablet 4 mgJump to med 4 mg, oral, EVERY 6 HOURS PRN, Starting on Thu04/25/16 at 2308, Until Thu04/28/16 at 1434, Nausea, Routine Or ondansetron (PF) (ZOFRAN) injection 2-4 mgJump to med 2-4 mg, intravenous, EVERY 6 HOURS PRN, Starting on Thu04/25/16 at 2308, Until 04/28/16 at 1434, Nausea, Routine documented in this encounter Orders Medications Ordered That Tj ht Not Have Been Administered Count Last Ordered Date First Ordered Date acetaminophen (TYLENOL) suppository 975 mg 1 04/25/2016 bisacodyl (DULCOLAX) suppository 10 mg 1 calcium carbonate (TUMS) 200 mg calcium (500 mg) per chewable tablet tablet,chewable 1-2 Tab 1 04/25/2016 ondansetron (PF) (ZOFRAN) injection 2-4 mg 1 04/25/2016 ondansetron (ZOFRAN-ODT) dis integrating tablet 4 mg 1 04/25/2016 PEG 3350-Electrolytes (CHENG AX) packet 17 g 1 04/25/2016 Nursing Count Last Ordered Date First Orde red Date VTE PHARMACOLOGIC PROPHYLAXI S CURRENTLY ORDERED OR ON ALTERNATIVE THER 1 04/25/2016 PT Count Last Ordered Date First Orde red Date PT EVALUATION AND TREAT 1 04/25/2016 Admission Count Last Ordered Date First Orde red Date ED BED REQUEST 1 04/25/2016 STATUS: INPATIENT ACUTE ADMISSION 1 016 Transfer Count Last Ordered Date First Orde red Date NOTIFY PPS OF DISCHARGE COMPLETE 1 04/28/20 16 PPS NOTIFICATION OF PATIENT ARRIVAL ON UNIT 1 04/25/2016 UR PATIENT STATUS CHANGE 1 04/25/2016 Discharge Count Last Ordered Date First Orde red Date DISCHARGE PATIENT 1 04/28/2016 Consult to Social Work Count Last Ordered Date First Ordered Date CONSULT SOCIAL WORK 1 04/25/2016 documented in this encounter Care Teams Business Coordinator Relationship Specialty Start Date End Date Gilmer Lin MD [address] [place] [address],[address] [place] [address] PCP - General 04/25/16 documented as of this encounter
--- OUTSIDE RECORDS SUMMARY | 2024-06-09 11:09 | XMS_ITS ---
Author Organization Unknown Address [address] [place] [phone] Phone Care Team Providers Care Route Delivery Supervisor Name Role Phone SALAZAR EMILIANO Attending Unavailable Social History Type Status Start Date End Date Code Code Syst em Smoking History Never smoker (Never Smoked) 288376472 SNOMED CT Sex Male Hospital Discharge Instructions Should you have any questions prior to discharge, please contact a member of your healthcare team. If you have left the hospital and have any questions, please contact your primary care physician. Reason For Referral No Data Found Allergies and Adverse Reactions Allergy Substance Reaction Severity Start Date Concern Status Co de Code System No Known Drug Allergies Moderate Active 947889718 SNOMED-CT Plan of Treatment NM MPI STR/RST 10/21/2023 Encounters Encounter Diagnosis Start Date Code Code Sys tem Generalized ischemic myocardial dysfunction 09/18/2023 777564402 SNOMED-CT Personal Care Team Section Performer Name Performer Role Active Date Inactive Da te
--- OUTSIDE RECORDS SUMMARY | 2024-06-09 11:09 | XMS_ITS ---
Author Organization Unknown Address [address] [place] [phone] Phone Care Team Providers Care Web Ui Developer Name Role Phone NIURKA Reyna Attending Unavailable Social History Type Status Start Date End Date Code Code Syst em Smoking History Never smoker (Never Smoked) 462878733 SNOMED CT Sex Male Hospital Discharge Instructions [...] System No Known Drug Allergies Moderate Active [id number] SNOMED-CT Plan of Treatment NM MPI STR/RST 10/21/2023 Encounters Encounter Diagnosis Start Date Code Code Sys tem Generalized ischemic myocardial dysfunction 10/09/2023 [id number] SNOMED-CT Personal Care Team Section Performer Name Performer Role Active Date Inactive Da te
--- OUTSIDE RECORDS SUMMARY | 2024-06-09 11:09 | XMS_ITS ---
Author Organization Unknown Address [address] [place] [phone] Phone Care Team Providers Care E Commerce Marketing Analyst Name Role Phone SALAZAR EMILIANO Attending Unavailable Social History Type Status Start Date End Date Code Code Syst em Smoking History Never smoker (Never Smoked) [id number] SNOMED CT Sex Male Hospital Discharge Instructions [...] System No Known Drug Allergies Moderate Active [id number] SNOMED-CT Plan of Treatment NM MPI STR/RST 10/21/2023 Encounters Encounter Diagnosis Start Date Code Code Sys tem Generalized ischemic myocardial dysfunction 09/23/2023 298852925 SNOMED-CT Personal Care Team Section Performer Name Performer Role Active Date Inactive Da te
--- OUTSIDE RECORDS SUMMARY | 2024-06-09 11:09 | XMS_ITS | Encounter Summary ---
Author Organization [facility] Address [address] [place] [address] Care Team Providers Care Food Assembler Kitchen Name Role Phone Victor Hugo Izquierdo MD Primary Care Provider [phone] Encounter Details Date Type Department Care Team (Latest Contact Info) Description 07/12/2014 14:45 EST - 07/12/2014 23:59 EST Hospital Encounter [address] [address] Unknown, Provider, Discharge Disposition: Home or Self Care Social History Tobacco Use Types Packs/Day Years Used Date Smoking Tobacco: Never Assessed Sex and Gender Information Value Date Recorded Sex Assigned at Not on file Legal Sex Male 18:28 EST Gender Identity Male 06/27/2020 12:34 EST Sexual Orientation Not on file documented as of this encounter Medications at Time of Discharge aspirin 325 mg tablet Take 325 mg by mouth daily. 06/27/2020 hydrochlorothiazi de (HYDRODIURIL) 25 mg tablet Take 25 mg by mouth daily. 06/27/2020 lisinopril (PRINIVIL, ZESTRIL) 20 mg tablet Take 5 mg by mouth daily. 06/27/2020 documented as of this encounter Discharge Disposition Disposition Code Departure Means Destination Home or Self Fdc documented in this encounter Plan of Treatment Not on file documented as of this encounter Visit Diagnoses Not on filedocumented in this encounter Care Teams Food Assembler Kitchen Relationship Specialty Start Date End Date Victor Hugo Izquierdo MD [address] [place] [address] PCP - General 07/03/11 04/24/16 documented as of this encounter
--- OUTSIDE RECORDS SUMMARY | 2024-06-09 11:09 | XMS_ITS | Encounter Summary ---
Author Organization [facility] Address [address] [place] [address] Care Team Providers Care Levee Superintendent Name Role Phone Victor Hugo Izquierdo MD Primary Care Provider [phone] Reason for Visit * Reason Comments Chronic Kidney Disease Encounter Details Date Type Department Care Team (Late st Contact Info) Description 09/03/2011 10:00 EDT Office Visit [facility] Nephrology [facility] [address] [place], [place] [id number] Aleksandr Sims MD [address] [facility], [address] [place] [phone] Unspecified essential hypertension (Primary Dx) Social History Tobacco Use Types Packs/Day Years Used Date Smoking Tobacco: Never Assessed Sex and Gender Information Value Date Recorded Sex Assigned at Not on file Legal Sex Male 18:28 EST Gender Identity Male 06/27/2020 12:34 EST Sexual Orientation Not on file documented as of this encounter Last Filed Vital Signs Vital Sign Reading Time Taken Comments Blood Pressure 109/80 09/03/2011 0957 EDT Pulse 104 09/03/2011 0957 EDT Temperature - - Respiratory Rate - - Oxygen Saturation - - Inhaled Oxygen Concentration - - Weight 75.5 kg (166 lb 7.2 oz) 09/03/2011 0957 E DT Height - - Body Mass Index - - documented in this encounter Progress Notes * Aleksandr Sims MD - 09/03/2011 1012 EDT Nephrology CKD New Note - Smart Text Reason for Visit: Frediterry Vargas is being seen for chronic kidney disease. Problems: Patient Active Problem List Diagnoses ??? Chronic kidney disease, stage III (moderate) ??? Unspecified essential hypertension Subjective: The patient has known of kidney disease for less than one years. Review of relevant laboratory dataindicates that an elevated creatinine has been present for at least 1 year: creatinine 1.0-1.1 in 2009, and 1.3-1.4 in 2010-. He has no albuminuria (ACR <6). An evaluation for the etiology of the chronic kidney disease has included a kidney ultrasound showing R 11 and L 12 cm kidneys with no hydronephrosis and a single simple cyst. A 24 hour urine in January had a creatinine clearance of 102 ml/min with serum creatinine of 1.3. 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 He has had a number of ED visits for sudden diaphoresis with and without chest discomfort. EKG's have been unrevealing as was a treadmill stress test (a few years ago). These episodes of diaphoresis are paroxysmal and associated with some tachycardia. His hypertension has been present for >10 years and he was started on low dose MARLON/diuretic ~5 years ago with a good response. There is no history of kidney stones, urinary infections, exposure to nephrotoxins (iodinated contrast, Prn NSAIDs, antibiotics, etc). Family history is negative for kidney disease. Hypertension exists in father and ?brother. No known genetic disease. With regard to symptoms related to chronic kidney disease, there is no fatigue, anorexia, dysguesia, nausea, vomiting, somnolence, pruritus, myotonic twitching, or decrease in cognitive function. Thepatient denies hematuria, frothiness, dysuria, oliguria, or decrease in urinary stream. Review of Systems: A ten-point review of system was obtained and the pertinent positives and negatives are noted above. Family history of renal disease: No Social history: works at a [employer] (physically active), non-smoker Current Medications: Outpatient Prescriptions Marked as Taking for the 09/03/11 encounter (Office Visit) with Aleksandr Sims MD Medication Sig Dispense Refill ??? aspirin 325 mg tablet Take 325 mg by mouth daily. ??? hydrochlorothiazide (HYDRODIURIL) 25 mg tablet Take 25 mg by mouth daily. ??? lisinopril (PRINIVIL, ZESTRIL) 20 mg tablet Take 5 mg by mouth daily. Physical Examination: He appears clinically euvolemic, is comfortable and in no acute distress. Weight today is Weight : 75.5 kg (166 lb 7.2 oz). BP 109/80 Pulse 104 Wt 75.5 kg (166 lb 7.2 oz) The patient does home blood pressures No Psych: Alert and oriented x 3 Skin: Warm and without acute rash, lesions, or ecchymosis. HEENT: AT/NC, EOMI, PERRL, no scleral pallor. Neck: Supple, no jugular venous distention or lymphadenopathy. Lungs: Normal on percussion and clear on auscultation. CVS. There is no murmur and no rub. Extremities show no edema bilaterally. Peripheral pulses are intact. Abdomen: Soft, non-tender, with normal bowel sounds. No bruit or mass. There is no CVA tenderness. Neuro: Grossly non-focal and without asterixis. Labs: Labs are reviewed below: The most recent urinalysis: Chronic Kidney Disease: Fredi has hypertension with a normal creatinine clearance (102 ml/min). He does have paroxysmal sympathetic nervous system symptoms. There is also mild hypokalemia (on diuretics). ASSESSMENT: Hypertension: well controlled on current therapy. Will check metanephrines (to look for pheochromocytoma), renin and aldosterone levels. Kidney function: his creatinine clearance is normal with creatinine 1.3 mg/dL. There is no albuminuria or abnormal ultrasound. Diagnostic Plan: 1. Special labs/studies: renin, edward, metanephrine 2. Renal biopsy indicated: No Therapeutic Plan: 1. Medications to have a change in dose: None 2. Medications to be added: None 3. Medications to be discontinued: None 4. Routine labs for next visit: none 5. Special labs to be ordered: None 6. Other: Consider switch to lisinopril 10/hctz 12.5 single pill. Plans for Renal Replacement Therapy: There are no indications for institution of dialysis at this time. Dialysis options education and planning for a dialysis access will be instituted if renal function deteriorates rapidly and/or to below an estimated GFR below 25 ml/min per 1.73m2. Plans for Transplantation: This has not been discussed at this visit. Should there be rapid progression toward end stage kidney disease and the patient is interested in exploring this option, I will obtain an evaluation from the [facility]. Follow-up: not scheduled unless abnormal lab tests. Aleksandr Sims MD Attending in Nephrology documented in this encounter Plan of Treatment Not on file documented as of this encounter Visit Diagnoses Diagnosis Unspecified essential hypertension- Primary documented in this encounter Historical Medications * This list may reflect changes made after this encounter. lisinopril (PRINIVIL, ZESTRIL) 20 mg tablet Take 5 mg by mouth daily. 06/27/2020 hydrochlorothiazi de (HYDRODIURIL) 25 mg tablet Take 25 mg by mouth daily. 06/27/2020 aspirin 325 mg tablet Take 325 mg by mouth daily. 06/27/2020 added in this encounter Care Teams Levee Superintendent Relationship Specialty Start Date End Date Victor Hugo Izquierdo MD [address] [place] [address] PCP - General 07/03/11 04/24/16 documented as of this encounter
--- OUTSIDE RECORDS SUMMARY | 2024-06-09 11:09 | XMS_ITS | Encounter Summary ---
Author Organization [facility] Address [address] [place] [address] Care Team Providers Care Marketing Intelligence Manager Name Role Phone Unavailable Primary Care Provider Unavailabl e Encounter Details Date Type Department Care Team (Late st Contact Info) Description 07/07/2006 Before PRISM Converted Visit (Maple) [facility] - Maple conversion [address] [place] [address] Violette Stewart PA-C [address], [place] [id number] Social History Tobacco Use Types Packs/Day Years Used Date Smoking Tobacco: Never Assessed Sex and Gender Information Value Date Recorded Sex Assigned at Not on file Legal Sex Male 18:28 EST Gender Identity Male 06/27/2020 12:34 EST Sexual Orientation Not on file documented as of this encounter Consult Notes * Philippe, Conv Cytometry Technologist - 06/07/2009 1630 EST DIVISION OF RHEUMATOLOGY CONSULTATION - HISTORY OF PRESENT ILLNESS: Fredi Vargas is a 51- year- old white male sent for consultation by Dr. Rodrigue Garcia for questionable rheumatoid arthritis. This patient has had bilateral knee pain x 2 years. Patient states that he has a burning sensation on the medial aspect of both knees. This pain gets worse as theday goes on, and he often develops a swelling in both knees. However, this swellingsubsides by the next morning. This patient had arthroscopy of the right knee in 2004. Patient states that this arthroscopy revealed crystals and that he was told thathe has gout. He has been given four shots of silicone and a steroid injection. Patient states that all of these treatments are short- lived. He denies any morning stiffness. At times, the left knee has felt unstable, but he denies any falls. Patienthas pain at night. This patient works at [employer] on the 3 to 11 shift. He is on his feet throughout the entire shift. Recently, he has been given a prescription for Celebrex 200 mg daily. He has been taking this medicine for the past 2 weeks, and he has noticed decreased swelling and improved sleep. He denies anyother joint pain today. REVIEW OF SYSTEMS: A 12- point review of systems was conducted and no pertinent negatives or postives found. PAST MEDICAL HISTORY: 1. Hypertension. 2. Arthroscopy, right knee, 2004. 3. Flexor tendon repair, right hand, 2004. MEDICATIONS: Celebrex 200 mg daily. ALLERGIES: No known drug allergies. FAMILY HISTORY: There is no family history of arthritis or gout. 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 He is here today with his mother. He is a nonsmoker and rarely drinks alcohol. This patient is very physically active,and enjoys farming and cuts/stacks his own firewood. PHYSICAL EXAMINATION: Height5 feet 5- 1/2 inches, weight 177- 1/2, blood pressure 156/102, pulse 76. Patient reports burning in both knees today. Eyes: Conjunctivae and sclerae clear, pupils equal,round, reactive to light. HENT: Patient does not have any teeth; oral mucosa and pharynx clear. Neck: No cervical adenopathy. Respiratory: Lungs are clear to auscultation. Cardiac: The heart has a regular rate and rhythm without murmur. GI: The abdomen is soft and nontender. Skin: No acute rash. Neurologic: Deep tendon reflexes are 2+ throughout. Strength is 5/5 in all large muscle groups. Musculoskeletal: There is decreased extension at the neck but otherwise, range of motion is well- preserved. Shoulders, elbows, and wrists without synovitis; no synovitis in the hands, nor are there any Lino's or Heberden's nodes. Hips move well. The right knee is tender over the medial femoral epicondyle and the medial joint line. The left knee is tender over the medial joint line and medial tibial plateau. Knees are cool andwithout effusion. Range of motion is within normal limits. No instability with valgus and varus maneuvers. Drawer sign is negative. There is no evidence of synovitis in theankles or feet. Gait is normal, but there is bilateral genu valgus. IMAGING: From 12/14/2005 - Bilateral knees - impression: small joint effusions, right greater than left. Slight degenerative change on the right, and extremely minimal degenerative change in the leftpatellofemoral compartment. LABORATORY DATA: From 06/24/2006 - Rheumatoid factor 20, uric acid 7.9, alk phos 104, sed rate 7, CRP negative, PATRICIA negative. ASSESSMENT: 1. Early osteoarthritis, knees. This patient has a very low positive rheumatoid factor, and I believe it is unrelated to his knee pain. 2. Hypertension. I did recheck this patient's blood pressure at the end of the visit, but it was 142/102 in the right arm. PLAN: 1. I advised this patient to try glucosamine 1500 mg daily for the next 2 months. I advised him to consult with his local pharmacist about which brand to purchase. I advised the patient to try this for 2 months and if he is no better, then to stop it. If he is better, then he can certainly take glucosamine indefinitely. 2. This patient seems to have had a positive response to Celebrex after only 2 weeks. However, his blood pressure is elevated today, and I have asked him to return to Dr. Garcia's office for further evaluation of hypertension. 3. I advised this patient to ice his knees when he gets home from work for 15 to 20 minutes each time. 4. Follow up with Rheumatology as needed. 5. This patient was given a brochure regarding osteoarthritis. I was directly supervised by Dr. Cassidy Enrique who was in the office suite and immediately available the entire time the service was provided. Signed by Cassidy Enrique MD 07/13/2006 15:13 Reviewed by AUTUMN Russo 07/10/2006 16:37 Gael Parish PAChristine H Jones, MD Dictated by: AUTUMN Russo Cassidy Enrique MD - AUTUMN Stewart P - O1 Job ID: [id number] Document ID: [id number] cc: Rodrigue Garcia MD documented in this encounter Plan of Treatment Not on file documented as of this encounter Visit Diagnoses Not on filedocumented in this encounter
--- OUTSIDE RECORDS SUMMARY | 2024-06-09 11:09 | XMS_ITS | Encounter Summary ---
Author Organization [facility] Address [address] [place] [address] Care Team Providers Care It Administrative Assistant Name Role Phone Victor Hugo Izquierdo MD Primary Care Provider [phone] Encounter Details Date Type Department Care Team (Late st Contact Info) Description 07/10/2014 Results Only [facility] Laboratory Services - [facility] ([facility] [address], [place] [phone] Michelle Cornelius MD [address] [place] [id number] Social History Tobacco Use Types Packs/Day Years Used Date Smoking Tobacco: Never Assessed Sex and Gender Information Value Date Recorded Sex Assigned at Not on file Legal Sex Male 18:28 EST Gender Identity Male 06/27/2020 12:34 EST Sexual Orientation Not on file documented as of this encounter Plan of Treatment Not on file documented as of this encounter Procedures Procedure Name Priority Date/Time Associated Diagnosis Comments SURGICAL PATHOLOGY Routine 07/10/2014 9:03 EST documented in this encounter Results * SURGICAL PATHOLOGY (07/10/2014 9:03 EST) Pathology Report: SURGICAL PATHOLOGY REPORT Reports generated via electronic interface contain original data; however they are lacking the format of the original report. Caution should be taken when reading/interpreting unformatted reports. Name: ? SAM DARA Ying ? Accession #: ? [id number] ? : ? 1955 (Age: 59) ??M ? Collect Date: ? 07/10/2014 ? Location: ? [facility] ? Receive Date: ? 07/11/2014 ? Provider: MICHELLE CORNELIUS MD Copy to: ? Final Pathologic Diagnosis: APPENDIX, APPENDECTOMY: - ??Mild mucosal appendicitis with melanosis coli and marked periappendicitis. See comment. ? - ??Periappendiceal fat necrosis and hemorrhage. Microscopic Description: The entire appendix has been submitted for histologic evaluation. PAS-amylase was performed and is negative for microorganisms (3). In view of severe periappendicitis but mild appendicitis, an inflammatory etiology outside the appendix can not be entirely excluded. Clinical correlation is recommended. Case reviewed in intradepartmental consensus with Dr. Juan Prasad who concurs. Document reviewed and electronically signed by: FRANK HOOD MD Report ??Date: 07/18/2014 13:37 By the signature above, the attending physician certifies that he/she has personally conducted a gross and/or microscopic examination of the described specimens and rendered or confirmed the above diagnosis. Specimen(s) Received: Appendix Clinical History: RLQ pain, appendicitis Gross Description: ? Received in formalin labelled with proper patient identification (initials P, R) and appendix is a vermiform appendix (5.7 cm in length x 0.7 cm in diameter), with moderate mesoappendix. ??The proximal margin is not stapled. ? The serosa is predominant pink-hebert and glistening while the distal aspect is hebert-red and dusky. The average wall thickness is 0.2 cm with no discernable perforation site. The lumen ranges from 0.2 cm to 0.4 cm in diameter and contains fecal material. ??The proximal margin is inked black. ??At the distal aspect within the mesoappendix, there is a 0.7 cm in diameter well-demarcated hemorrhagic region. ? The proximal margin en face, two customer sales representative cross sections and one-half of the longitudinally bisected distal tip including hemorrhagic region are submitted in 1. ?? Additional sections: The remaining appendix is submitted in 2-6, entirely. Monica Urban 07/11/2014 09:49 AM End of Report [facility] 07/10/2014 9:03 EST 07/11/2014 9:03 EST us Michelle Cornelius MD PATHOLOGY ORDERABLES Final R esult [facility] [address] [place] [address] documented in this encounter Visit Diagnoses Not on filedocumented in this encounter Care Teams It Administrative Assistant Relationship Specialty Start Date End Date Victor Hugo Izquierdo MD [address] [place] [address] PCP - General 07/03/11 04/24/16 documented as of this encounter
--- OUTSIDE RECORDS SUMMARY | 2024-06-09 11:10 | XMS_ITS ---
Author Organization Unknown Address [address] [place] [phone] Phone Care Team Providers Care Morale Officer Name Role Phone NIURKA Reyna Attending Unavailable ROBERT VERMA Primary Unavailable Results BASIC METABOLIC PANEL (BMP) - Collect Date/Time: 01/07/2024 10:28 [facility] ID: [id number] - [id number] [address], [place], [address] LOINC: 50050-5 Test Value Unit Reference Range Code Code System Flag GLUCOSE 119 mg/dL L=70 H=116 2345-7 LOINC H BUN 26 mg/dL L=6 H=25 3094-0 LOINC H CREATININE 1.95 mg/dL L=0.67 H=1.17 2160-0 LOINC H SODIUM SERUM 141 mmol/L L=136 H=145 2951-2 LOINC POTASSIUM SERUM 4.4 mmol/L L=3.4 H=5.2 2823-3 LOINC CHLORIDE SERUM 104 mmol/L L=96 H=110 2075-0 LOINC CARBON DIOXIDE (CO2) 27 mmol/L L=22 H=34 2028-9 LOINC ANION GAP 9.7 mmol/L 64642-5 LOINC CALCIUM SERUM 9.2 mg/dL L=8.2 H=10.2 75737-3 LOINC AGE 68 years eGFR (non-Afr.Amer.) 35 mL/min 44158-0 LOINC eGFR (Afr-Macedonian) 42 mL/min 58306-4 LOINC Social History Type Status Start Date End Date Code Code Syst em Smoking History Never smoker (Never Smoked) 777149047 SNOMED CT Sex Male Hospital Discharge Instructions [...] System No Known Drug Allergies Moderate Active 731622814 SNOMED-CT Plan of Treatment NM MPI STR/RST 10/21/2023 Encounters Encounter Diagnosis Start Date Code Code Sys tem Mixed hyperlipidemia 01/07/2024 639260928 SNOMED- CT Personal Care Team Section Performer Name Performer Role Active Date Inactive Da te
--- OUTSIDE RECORDS SUMMARY | 2024-06-09 11:10 | XMS_ITS ---
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 Name Role Phone AMRTIN CUMMINGS Attending Unavailable ROBERT VERMA Primary Unavailable Results NM MPI COMPLETE - Completed: 10/21/2023 11:31 LOINC: [facility] [place], [place] [address] [facility] PAC JUNIOR ORACLE DBA REPORT Patient Name: JUNE CONNMARLEN He MRN: Sex: : Age: [id number] O 1955 68 Account: Accession: Admit: StayType: [id number] 10/21/2023 O Ordered: Order ID: Submitted: Ordering Provider: 10/21/2023 09:52 [id number] HTP EMILIANO SALAZAR Completed: Technologist: Resulted: 10/21/2023 08:36 HTP 10/21/2023 16:23 FINAL REPORT Vasodilator/Pharmacologic Nuclear Stress Test: Date: 10/21/2023 Ordering Provider: , Referring Provider: EMILIANO SALAZAR ID number: [id number] Date of : 1955 Age: 68Y Indication for Test: CLINICAL HISTORY: HTN, CAD, CARDIOMYOPATHY The patient underwent vasodilator nuclear stress testing. 10.8 mCi technetium administered at 900 hours as rest dose radionuclide 31.4 mCi technetium administered at 1025 hours as stress dose radionuclide Baseline BP: 129/83 Baseline HR: 58 Baseline ECG: Sinus rhythm 56 beats per minute. Q-wave lead 3,. Hemodynamic response: Normal Chest pain: None Arrhythmia: None EKG changes: None Gated imaging demonstrates an ejection fraction of 46 % by gated images. Moderate septal hypokinesis. By visual estimate: 55% percent. Perfusion imaging demonstrates small size intense predominantly fixed/mid inferior defect Conclusions: Negative ischemia. Small inferior scar. Low-normal LV systolic function. Electronically signed by: Tucker Deal Dictated: 10/21/2023 16:23 Social History Type Status Start Date End Date Code Code Syst em Smoking History Never smoker (Never Smoked) 327757316 BrightLineOMED CT Sex Male Hospital Discharge Instructions Should [...] System No Known Drug Allergies Moderate Active 185248358 SNUnsilo-CT Plan of Treatment NM MPI STR/RST 10/21/2023 Encounters Encounter Diagnosis Start Date Code Code Sys tem Abnormal result of other cardiovascular function study 10/21/2023 SNOMED-CT Personal Care Team Section Performer Name Performer Role Active Date Inactive Da te
--- OUTSIDE RECORDS SUMMARY | 2024-06-09 11:10 | XMS_ITS ---
Author Organization Unknown Address [address] [place] [phone] Phone Care Team Providers Care Manufacturing Technician Name Role Phone NIURKA Reyna Attending Unavailable ROBERT VERMA Primary Unavailable Social History Type Status Start Date End Date Code Code Syst em Smoking History Never smoker (Never Smoked) 647055728 SNOMED CT Sex Male Hospital Discharge Instructions [...] System No Known Drug Allergies Moderate Active 650503394 SNOMED-CT Plan of Treatment NM MPI STR/RST 10/21/2023 Encounters Encounter Diagnosis Start Date Code Code Sys tem Generalized ischemic myocardial dysfunction 01/01/2024 691924063 SNOMED-CT Personal Care Team Section Performer Name Performer Role Active Date Inactive Da te
== END 2024-06-09 11:07 | disposition home or self-care (01) ==
LOC: LBN 11:06
PROVIDERS: PCP Family Medicine; Visit Provider Student in an Organized Health Care Education/Training Program
DX: T84.84XA Pain due to internal orthopedic prosthetic devices, implants and grafts, initial encounter (principal); Z96.651 Presence of right artificial knee joint
CPT/HCPCS: 87070; 87205; 89051

== ENCOUNTER 2024-07-13 09:31 | Day surgery (SDC) | payer MEDICARE, SELFPAY ==
[2024-07-13] VITALS (38 sets, daily range): BP systolic 89–163; BP diastolic 53–112; PULSE 61–88; RESP 10–23; TEMP 36.2–36.6; O2SAT 93–97; BMI 31.6
[2024-07-13] MEDS: Acetaminophen 500 MG TAB 1000 MG PO (10:30)
[2024-07-13] MEDS: Celecoxib 200 MG CAP 400 MG PO (10:30)
[2024-07-13] MEDS: Lactated Ringers 1,000 ML 80 ML IV (10:56)
--- NOTE | 2024-07-13 11:46 | W.ANESPRE ---
General Info Date of Service Date Performed: 07/13/24 Height: 5 ft 6 in Weight: 88.9 kg Body Mass Index (BMI): 31.6 Surgical Procedure: Operation Date: 07/13/24 13:10 Proposed Procedure Side Surgeon p Knee Arthroscopy Synovectomy Right Bernabe Arteaga MD Meds Allergies and Home Medications Allergies Allergy/AdvReac Type Severity Reaction Status Date / Time No Known Allergies Allergy Verified 07/13/24 10:20 Home Medication ?Medication ?Instructions ?Recorded acetaminophen 500 mg tablet 500 mg PO Q6H PRN 03/15/24 (Tylenol Extra Strength) aspirin 81 mg tablet,delayed 81 mg PO DAILY 03/15/24 release colchicine 0.6 mg capsule 0.6 mg PO DAILY 03/15/24 atorvastatin 80 mg tablet 40 mg PO DAILY 06/09/24 carvedilol 12.5 mg tablet 12.5 mg PO BID 06/09/24 lisinopril 20 mg tablet 20 mg PO DAILY 06/09/24 peg 400-propylene glycol (PF) 0.4 2 drp ophthalmic (eye) BID-QID PRN 06/09/24 %-0.3 % eye drops in a dropperette (Systane (PF)) spironolactone 25 mg tablet 25 mg PO DAILY 06/09/24 Current Visit Medications: Current Medications Generic Name Dose Route Start Last Admin Trade Name Robertq PRN Reason Stop Dose Admin Acetaminophen 1,000 mg 07/13/24 06:00 07/13/24 10:30 Acetaminophen 500 Mg Tab PO 08/11/24 23:59 1,000 mg PREOP JAMIN Administration Celecoxib 400 mg 07/13/24 06:00 07/13/24 10:30 Celecoxib 200 Mg Cap PO 08/11/24 23:59 400 mg PREOP JAMIN Administration Ringer's Solution 1,000 mls @ 80 mls/hr 07/13/24 06:00 07/13/24 10:56 IV 08/11/24 23:59 80 mls/hr INFUSION JAMIN Administration Cefazolin Sodium/Dextrose 2 gm in 50 mls @ 100 mls/hr 07/13/24 06:00 Ancef Duplex IVPB 08/11/24 23:59 PREOP JAMIN Tranexamic Acid/Sodium Chloride 1,000 mg in 100 mls @ 600 mls/hr 07/13/24 06:00 IVPB 08/11/24 23:59 PREOP JAMIN IV Miscellaneous Supplies 1 each 07/13/24 06:00 Iv Access IV 08/11/24 23:59 DIRECTED JAMIN Sodium Chloride 0 ml 07/13/24 06:00 Normal Saline Flush 10 Ml Syr IV 08/11/24 23:59 PRN PRN Sodium Chloride 0 ml 07/13/24 06:00 Normal Saline 10 Ml Vial IJ 08/11/24 23:59 DIRECTED PRN Sterile Water 0 ml 07/13/24 06:00 Water,Injection,Sterile 10 Ml Vial IJ 08/11/24 23:59 DIRECTED PRN PFSH Active Problems Active Problems: Problem Status Onset Code Arthrofibrosis of total knee arthroplasty Acute T84.82XA Painful total knee replacement, right Acute T84.84XA, Z96.651 Transient cerebral ischemia Chronic G45.9 Obesity Chronic E66.9 Hypertensive disorder Chronic I10 GERD (gastroesophageal reflux disease) Chronic K21.9 CKD (chronic kidney disease) stage 3, GFR 30-59 ml/min Acute N18.30 Astigmatism Acute H52.209 Medical History Medical History Visual disturbance Neuropathy Muscle atrophy Vertigo Acute ST elevation myocardial infarction (STEMI) 2020 Surgical History Surgical History History of colonoscopy Hx of CABG 2020 History of total knee replacement 2017 right History of appendectomy Tobacco Smoking/Tobacco Use Status: Never Alcohol Alcohol Intake: current Alcohol intake frequency: holidays/special occasions only Substance Use Substance use: Never Substance use type: does not use Vital Signs and Lab Results Vital Signs Most Recent Vital Signs in EMR: Most Recent Vital Signs Temp Pulse Resp BP Pulse Ox 36.4 C L 88 16 163/86 H 97 07/13/24 10:09 07/13/24 10:09 07/13/24 10:09 07/13/24 10:47 07/13/24 10:09 Lab Results Blood Type / Crossmatch: No Data to Display Complete Blood Count: No Data to Display Complete Metabolic Panel: No Data to Display Liver Function Panel: No Data to Display Coagulation Panel: No Data to Display Cardiac Panel: No Data to Display Arterial Blood Gas: No Data to Display Venous Blood Gas: No Data to Display Pancreas Panel: No Data to Display Thyroid Panel: No Data to Display Infectious Disease: No Data to Display Blood Cultures: No Data to Display Toxicology Panel: No Data to Display Anesthesia Assessment and Plan Anesthesia History Personal History: No History of Anesthesia Complications Family History: No Family History of Anesthesia Complications Exercise Tolerance Exercise Tolerance: Metabolic Equivalents>4 Pertinent Negatives Pertinent Negatives: No Symptoms of GERD Cardiac & Pulmonary Exam Cardiac Exam: Normal S1/S2 Heart Sounds Pulmonary Exam: Clear Bilateral Breath Sounds Implantable Cardiac Device Does patient have a Pacemaker or an ICD?: No Airway Exam Known Difficult Airway: No Mallampati Class: 3 Mouth Opening: Normal (> 3cm) Thyromental Distance: Less than 3 cm Neck Range of Motion: Full ROM Neck Circumference: Thick Teeth Condition: Edentulous ASA Classification ASA Score: ASA 3 Emergency Case?: No NPO Status NPO Status: NPO Clears >2 hours, Solids >8 hours Anesthesia Plan Resuscitation Status: Full Code Anesthesia Technique: General Anesthesia Airway Planned: LMA Monitors Used: Standard Monitors
--- NOTE | 2024-07-13 12:29 | W.PREOPHP ---
Assessment and Plan Assessment and plan (1) Arthrofibrosis of total knee arthroplasty: Status: Acute (2) Painful total knee replacement, right: Status: Acute Assessment and plan: Mynor is a 69-year-old male who has about his right knee after revision knee replacement. He also has significant arthrofibrosis. Given the location of his symptoms being localized to the lateral superolateral joint space and a negative infection workup I offered arthroscopic synovectomy. I reviewed the technical details of the surgery. I discussed the risk to include bleeding, infection, pain, stiffness, damage nerves and vessels, damage to muscle and tendons, need for repeat procedures, continued pain and symptoms, blood clot. Despite these risk, he elects to proceed. History of Present Illness History of Present Illness Chief Complaint: Painful Right Knee Replacement Narrative: Fredi is a 69-year-old male who is status post right knee replacement followed by revision arthroplasty for pain and stiffness. He now continues to have residual pain and stiffness. The majority of this is over the lateral and superolateral aspect of the joint space. He has been worked up for infection which is negative. Given his continued arthrofibrosis and pain I did offer arthroscopic synovectomy. He is here today for that procedure. He does have a history of coronary artery disease as well as chronic kidney disease. He denies any active chest pain or shortness of breath. Review of Systems All systems reviewed & are unremarkable except as noted in HPI and below PFSH All Active Problems Arthrofibrosis of total knee arthroplasty (Acute) Painful total knee replacement, right (Acute) Diagnostic inj/asp 06/09/24 Transient cerebral ischemia (Chronic) Obesity (Chronic) Hypertensive disorder (Chronic) GERD (gastroesophageal reflux disease) (Chronic) CKD (chronic kidney disease) stage 3, GFR 30-59 ml/min (Acute) Astigmatism (Acute) Medical History Visual disturbance Neuropathy Muscle atrophy Vertigo Acute ST elevation myocardial infarction (STEMI) 2020 Surgical History History of colonoscopy Hx of CABG 2020 History of total knee replacement 2017 right History of appendectomy Social History Smoking/Tobacco Use Status: Never Smoking risk assessment performed?: Yes Alcohol Intake: current Alcohol Intake frequency: holidays/special occasions only Drug use: Never Substance use type: does not use Housing: house Do you feel safe at home: Yes Do you feel safe in your relationship?: Yes Meds Allergies and Home Medications Allergies Allergy/AdvReac Type Severity Reaction Status Date / Time No Known Allergies Allergy Verified 07/13/24 10:20 Home Medications ?Medication ?Instructions ?Recorded ?Confirmed ?Type aspirin 81 mg tablet,delayed 81 mg PO DAILY 03/15/24 07/13/24 History release colchicine 0.6 mg capsule 0.6 mg PO DAILY 03/15/24 07/13/24 History atorvastatin 80 mg tablet 40 mg PO DAILY 06/09/24 07/13/24 History carvedilol 12.5 mg tablet 12.5 mg PO BID 06/09/24 07/13/24 History lisinopril 20 mg tablet 20 mg PO DAILY 06/09/24 07/13/24 History peg 400-propylene glycol (PF) 0.4 2 drp ophthalmic (eye) BID-QID PRN 06/09/24 07/13/24 History %-0.3 % eye drops in a dropperette (Systane (PF)) spironolactone 25 mg tablet 25 mg PO DAILY 06/09/24 07/13/24 History acetaminophen 500 mg tablet 1,000 mg (2 x 500 mg) PO TID #90 07/13/24 Rx tabs hydrocodone 5 mg-acetaminophen 325 1 tab PO Q6H PRN pain #10 tabs 07/13/24 Rx mg tablet ibuprofen 600 mg tablet 600 mg PO TID PRN pain #90 tabs 07/13/24 Rx Exam Const General: cooperative, healthy appearing, comfortable and no acute distress Resp Effort & Inspection: normal respiratory effort Auscultation: clear to auscultation bilaterally Cardio Rate: regular rate Rhythm: regular rhythm Results Last Vital Signs Temp 36.4 C L 07/13/24 10:09 Pulse 88 07/13/24 10:09 Resp 16 07/13/24 10:09 BP 163/86 H 07/13/24 10:47 Pulse Ox 97 07/13/24 10:09
--- NOTE | 2024-07-13 12:55 | W.PM.DSUDISC ---
Date of service: 07/13/24 Discharge Plan Disposition Patient Disposition: Home Condition: Good Discharge Details Reason For Visit: R knee arthroscopy Attending Provider: Bernabe Arteaga Primary Care Provider: Gilmer Lin [place] Meds and New Rx's Prescriptions: New hydrocodone-acetaminophen 5-325 mg tablet 1 tab PO Q6H PRN (Reason: pain) Qty: 10 0RF acetaminophen 500 mg tablet 1,000 mg PO TID Qty: 90 0RF ibuprofen 600 mg tablet 600 mg PO TID PRN (Reason: pain) Qty: 90 0RF Continued atorvastatin 80 mg tablet 40 mg PO DAILY carvedilol 12.5 mg tablet 12.5 mg PO BID Rx Instructions: must administer with a meal/food lisinopril 20 mg tablet 20 mg PO DAILY spironolactone 25 mg tablet 25 mg PO DAILY Systane (PF) 0.4-0.3 % dropperette 2 drp ophthalmic (eye) BID-QID PRN aspirin 81 mg tablet,delayed release (DR/EC) 81 mg PO DAILY colchicine 0.6 mg capsule 0.6 mg PO DAILY Discontinued acetaminophen [Tylenol Extra Strength] 500 mg tablet 500 mg PO Q6H PRN Discharge Instructions Stand Alone Forms: [facility] Referrals: Bernabe Arteaga MD [ [facility]FF [facility]YSICIAN] - Equipment/Supplies: Partial Weight Bearing Crutches Activity:: Activity as Tolerated Remove Dressings/Wound Care:: 72 hours Shower/Bathe:: 72 hours Diet:: As Tolerated Discharge Orders Discharge Orders: Discharge Order (Routine); Ordered 07/13/24 Ordered By: Leobardo Lopez DS: Diagnosis Discharge Diagnosis (1) Arthrofibrosis of total knee arthroplasty: Status: Acute (2) Painful total knee replacement, right: Status: Acute
--- NOTE | 2024-07-13 13:37 | ROE_ITS ---
Operative Note Operative Note PRE-OP DIAGNOSIS: Arthrofibrosis of Knee Replacement - RIGHT POST-OP DIAGNOSIS: same PROCEDURE: Arthroscopic Synovectomy of 3 Compartments with Manipulation - RIGHT Knee SURGEON: Bernabe Arteaga ANESTHESIA TYPE: General LMA/ETT Refer to Anesthesia Record ESTIMATED BLOOD LOSS: 0 PATHOLOGY: none sent COMPLICATIONS: None Patient was transported to: PACU Patient's condition: stable Indications: I have seen Mynor in clinic for symptoms of arthrofibrosis of the knee following knee replacement surgery. Nonoperative measures were exhausted but disability due to lack of motion persisted. I discussed knee arthroscopy with synovectomy with maniuplation with the patient. I reviewed the risks of the procedure to include, but not limited to, bleeding, infection, pain, continued stiffness, re currence, blood clot. Despite these risks, the patient elected to proceed. Findings: Preoperative Range of Motion: Flexion: 70 Extension:15 Postoperative Range of Motion: Flexion:95 Extension:10 Procedure Description: Mynor was greeted in the preoperative holding area where the correct side was identified and marked. The consent was reviewed with the patient and signed. The history and physical was updated. All questions were answered. He was taken back to the operating room. The patient was placed into the supine position on the operating room table. All bony prominences were well padded. Prophylactic antibiotics in the form of Cefazolin were administered. Preoperative range of motion was assessed as 15 - 70. The right leg was then prepped with Chloraprep and draped in a standard fashion with stockinette and extremity drape. A timeout to confirm correct identity, side and site, procedure, allergies, anesthesia, and medical concerns was performed. A standard lateral portal was made at the lateral border of the patella tendon in line with the inferior pole of the patella, soft spot. The skin and deep tissue was incised sharply and the blunt trochar was inserted atraumatically. The tissue about the knee is quite dense. There was no significant maneuverability. I was also unable to establish site of the femoral component or the patella. I removed the camera and utilized the insertion trocar to clear some space palpating metal and plastic. I then reinserted the camera. At this point had visualization of the femoral component. A superolateral portal was then established with spinal needle localization just superior and lateral to the patella. A knife was taken down through the skin and soft tissue to enter the knee joint. Starting in the superior compartment above the femoral component and anterior to the femur I released all scarring between the anterior femoral synovium and the overlying extensor mechanism. This was taken through all of any noticeable scar tissue until the superior patellar pouch was fully released and mobile. This resection was carried out mostly with electrocautery as well as shaver. This was very challenging. He had a copious amount of tissue throughout the knee encasing the entirety of the knee. I systematically released and also debrided. Maneuverability was very challenging throughout even after releasing the suprapatellar space. I continue to work in the suprapatellar space medial to lateral and then continued down the lateral gutter. There was abundant amount of tissue around the patella and in the area deep to the patellar tendon which was also debrided. To continue the synovectomy from the lateral compartment to the anterior compartment into the medial compartment, I placed a medial portal under spinal needle localization. Once this was in place it became another working portal and I continued the synovectomy through the anterior compartment to the medial compartment. There was dense scar tissue seen encasing the polyethylene and the distal femoral co ndyle interposed between the metal and the plastic. I utilized electrocautery to free adhesions as well as a probe to remove the soft tissue and then debrided with a shaver. There is no interposed tissue after full synovectomy was performed. Adhesions between the capsule and the femur were released. This was continued up the medial gutter until it met up with the releases performed previously in the superior compartment. Any remnant scar tissue from around the patella was then removed with a shaver and electrocautery. The arthroscope was brought back into the suprapatellar pouch and the leg was in full extension. The knee was thoroughly irrigated with the arthroscopic fluid on high flow and pressure. Inflow was stopped and excess fluid was removed. The leg was removed from the spider leg martel and manipulation was performed. I first push the knee into flexion and was able to obtain 95 degrees. I then worked the knee into extension, slowly applying an anterior to posterior directed pressure with support of the knee and no significant lever arm. This was cycled multiple times until I was able to obtain extension of 10 degrees. The wounds were closed with 4-0 Nylon. 0.25% bupivacaine was injected around the portal sites and into the knee. The wounds were dressed with Xeroform, 4x4 gauze, ABD pad, Kerlix and an MARLON wrap. A cryo-cuff was applied. The patient tolerated the procedure well and was returned to the Same Day Surgery area in a stable condition suffering no known complication.. Date of Procedure: 07/13/24
[2024-07-13] MEDS: ceFAZolin 2 GM/50 ML BAG IVPB (13:40)
[2024-07-13] MEDS: TRANEXAMIC ACID/SOD. CHL. 1,000 MG/100 ML BAG 600 MG IVPB (13:50)
[2024-07-13] MEDS: Bupivacaine 0.25% Pres-Free 30 ML VIAL (13:58)
[2024-07-13] MEDS: EPINEPHrine 10 MG/10 ML ML (15:22)
--- NOTE | 2024-07-13 16:42 | W.ANESPOSTOP ---
Postoperative Evaluation Date, Time and Location Date Performed: 07/13/24 Time Performed: 16:42 Patient Location: Day Surgery Unit Vital Signs Most Recent Imported Vital Signs: Most Recent Vital Signs Temp Pulse Resp BP Pulse Ox 36.2 C L 72 16 143/102 H 97 07/13/24 16:30 07/13/24 16:30 07/13/24 16:30 07/13/24 16:30 07/13/24 16:30 Pain Score Most Recent Pain Score: Most Recent Pain Score Pain Level 5 07/13/24 16:16 Assessment Mental Status: Awake (Alert & Oriented to Patient Baseline) Airway and Respiratory Function: Patent airway with normal (patient baseline) respiratory exam Cardiovascular Function: Hemodynamically Stable Hydration Status: Adequately Hydrated Nausea & Vomiting: No Nausea or Vomiting Pain: Pain is tolerable per patient Peripheral Nerve Block: Patient did not receive a nerve block
== END 2024-07-13 17:30 | disposition home or self-care (01) ==
PROVIDERS: PCP Family Medicine; Visit Provider Student in an Organized Health Care Education/Training Program
PROC: (CPT 29870; principal; 2024-07-13 13:00)
DX: T84.82XA Fibrosis due to internal orthopedic prosthetic devices, implants and grafts, initial encounter (principal); T84.84XA Pain due to internal orthopedic prosthetic devices, implants and grafts, initial encounter; Z96.651 Presence of right artificial knee joint; E66.9 Obesity, unspecified; I12.9 Hypertensive chronic kidney disease with stage 1 through stage 4 chronic kidney disease, or unspecified chronic kidney disease; N18.30 Chronic kidney disease, stage 3 unspecified
CPT/HCPCS: 29876; J0330; J0665; J0690; J1100; J2003; J2371; J2405; J2704; J3010

== ENCOUNTER → 2024-07-25 09:06 | Outpatient (BNVA) | payer MEDICARE, SELFPAY | PROVIDERS: PCP Family Medicine; Referring Provider Family Medicine | DX: Z47.89 Encounter for other orthopedic aftercare (principal); M25.661 Stiffness of right knee, not elsewhere classified | CPT/HCPCS: 99024 ==

== ENCOUNTER → 2024-08-22 09:26 | Outpatient (BNVA) | payer MEDICARE, SELFPAY | PROVIDERS: PCP Family Medicine; Referring Provider Family Medicine; Visit Provider Student in an Organized Health Care Education/Training Program | DX: T84.82XA Fibrosis due to internal orthopedic prosthetic devices, implants and grafts, initial encounter (principal); T84.84XA Pain due to internal orthopedic prosthetic devices, implants and grafts, initial encounter | CPT/HCPCS: 99213 ==

== ENCOUNTER → 2024-10-10 08:49 | Outpatient (BNVA) | payer MEDICARE, SELFPAY | PROVIDERS: PCP Family Medicine; Referring Provider Family Medicine; Visit Provider Student in an Organized Health Care Education/Training Program | DX: T84.82XA Fibrosis due to internal orthopedic prosthetic devices, implants and grafts, initial encounter (principal); Z47.1 Aftercare following joint replacement surgery | CPT/HCPCS: 99024 ==